=== PATIENT | male | born 1960 | race Caucasian/White ===

== ENCOUNTER 2018-11-25 15:27 | Inpatient (IN) ==
[2018-11-25] MEDS ORDERED: Heparin - SQ 10,000 UNITS/ML Vial SQ SCH (20:00)
[2018-11-25] MEDS: Morphine Inj 4 MG/ML Vial IV.PUSH PRN (22:35)
[2018-11-25] MEDS ORDERED: Heparin Drip 25,000 UNIT/250 ML BAG IV.CONT PRN (22:59)
--- NOTE | 2018-11-25 23:01 | P.HPIM ---
History of Present Illness Primary Care Physician: Royer De La Torre MD Mr. Leon is a pleasant 58-year-old male with a history of coronary artery disease status post stent placement x7 with last stent placed 8 years ago and first stent placed 14 years ago, hypertension, hyperlipidemia, PTSD, and tobacco abuse who presented to the emergency room in [place] complaining of chest pain. Troponin I measurement jumped from 0.03-0.54 and the patient was started on a heparin drip and start transferred to [facility] for further evaluation. The patient is seen in his hospital room. He reports his symptoms started this morning while he was cleaning house and doing laundry. His chest pain is described as a dull ache located substernally that is worse when he lays down and not accompanied by nausea or vomiting or palpitations. He does report an episode of diaphoresis and shortness of breath while he was cooking dinner ( chili) but it was transient and lasted only a few minutes. His symptoms did not resolve with rest and he continues to report pain at 5 out of 10 that is worse because he is lying down. He looks comfortable at the time of my visit. He states that his symptoms are nothing like the symptoms he had prior to any of his stent placement. He denies any recent fevers, chills, cough, nausea, vomiting, or diarrhea. He does not follow with a training development manager as an outpatient. Review of Systems Review of Systems: all other systems reviewed are negative [facility] Medical History Medical History CAD (coronary artery disease) (Acute) PTSD (post-traumatic stress disorder) (Acute) Tobacco abuse (Acute) Anxiety (Acute) Hyperlipemia (Acute) Hypertension (Acute) Surgical History Surgical History History of ankle fracture (Acute) History of femur fracture (Acute) History of wrist fracture (Acute) H/O laminectomy (Acute) Hx of heart artery stent (Acute) Social History Social History Substance History: Active Abuse Second Hand Smoke Exposure: Yes Smoking Status: Current every day smoker Tobacco Type: Cigarettes Packs Per Day: 0.5 Cigarettes Per Day: 10.0 Years Smoked: 45 Pack-Years: 22.50 How Often Do You Have a Drink Containing Alcohol: 2 to 3 times a week Substance Abuse Detail Marijuana: Substance Use Status: Active Route Used Substance Abuse: Inhalation Substance Frequency: 1-2 per week Reason for Use: Sleep Medications and Allergies Allergies Allergy/AdvReac Type Severity Reaction Status Date / Time No Known Allergies Allergy Verified 11/25/18 15:50 Home Medications Medication Instructions Recorded Confirmed Type alprazolam [Xanax] 1 mg PO PRN PRN 11/25/18 11/26/18 History cyclobenzaprine 10 mg PO PRN PRN 11/25/18 11/26/18 History lisinopril 10 mg PO HS 11/25/18 11/26/18 History Active Medications: Active Medications Aspirin (Aspirin) 325 mg PO DAILY [facility] Heparin Sodium (Porcine) (Heparin Inj) 2,500 units IV.PUSH UNSCH PRN PRN Reason: aPTT 25-39 Heparin Sodium (Porcine) (Heparin Inj) 5,000 units IV.PUSH UNSCH PRN PRN Reason: aPTT < 25 Heparin Sodium/Dextrose (Heparin/D5w 25,000 U/250 Ml) 25,000 unit in 250 mls @ 0 mls/hr IV.CONT TITRATE PRN; Protocol PRN Reason: Per Protocol Morphine Sulfate (Morphine Inj) 2 mg IV.PUSH Q4H PRN PRN Reason: Pain 3 to 10 Last Admin: 11/25/18 22:35 Dose: 2 mg Nitroglycerin (Nitrostat Sl) 0.4 mg SL Q5M PRN PRN Reason: CHEST PAIN Ondansetron HCl (Zofran Inj) 4 mg IV.PUSH Q6H PRN PRN Reason: NAUSEA Sodium Chloride (Ns Flush) 2 ml IV.FLUSH BID [facility] Last Admin: 11/25/18 22:38 Dose: 2 ml Sodium Chloride (Ns Flush) 2 ml IV.FLUSH PRN PRN PRN Reason: FLUSH AFTER USING IV ACCESS Physical Exam Vital signs: Vital Signs 11/25/18 20:00 Pulse Oximetry 98 Intake & Output 11/25/18 11/25/18 11/26/18 06:59 18:59 06:59 Weight 80.3 kg Other: Weight On Admission 80.3 kg Narrative: GENERAL: This is a somewhat disheveled appearing but pleasant male patient, in no apparent distress. SKIN: No rashes, ecchymoses or lesions. Cool and dry. HEAD: Atraumatic. Normocephalic. EYES: No scleral icterus. No injection or drainage. ENT: Nose without bleeding, purulent drainage. NECK: Trachea midline. No JVD. CARDIOVASCULAR: Regular rate and rhythm without murmurs, gallops, or rubs. RESPIRATORY: Breath sounds diminished throughout, equal bilaterally. No wheezes , rales, or rhonchi. GASTROINTESTINAL: Abdomen soft, non-tender, nondistended. No guarding. MUSCULOSKELETAL: Extremities without clubbing, cyanosis, or edema. No calf tenderness. NEUROLOGICAL: Awake and alert. Motor and sensory grossly within normal limits. Normal speech. . Results Labs CBC & Chem 7: 11/26/18 03:53 Caprini VTE Risk Assessment Caprini VTE Risk Assessment: Moderate/High Risk (score >= 2) Caprini Risk Assessment Model: Point Value = 1 Point Value = 2 Point Value = 3 Point Value = 5 Age 41-60 Minor surgery BMI > 25 kg/m2 Swollen legs Varicose veins or History of unexplained or recurrent spontaneous Oral contraceptives or hormone replacement Sepsis (< 1 month) Serious lung disease, including pneumonia (< 1 month) Abnormal pulmonary function Acute myocardial infarction Congestive heart failure (< 1 month) History of inflammatory bowel disease Medical patient at bed rest Age 61-74 Arthroscopic surgery Major open surgery (> 45 min) Laparoscopic surgery (> 45 min) Malignancy Confined to bed (> 72 hours) Immobilizing plaster cast Central venous access Age >= 75 History of VTE Family history of VTE Factor V Leiden Prothrombin [id number] Lupus anticoagulant Anticardiolipin antibodies Elevated serum homocysteine Heparin-induced thrombocytopenia Other congenital or acquired thrombophilia Stroke (< 1 month) Elective arthroplasty Hip, pelvis, or leg fracture Acute spinal cord injury (< 1 month) Prophylaxis Regimen: Total Risk Factor Score Risk Level Prophylaxis Regimen 0-1 Low Early ambulation 2 Moderate Order ONE of the following: *Sequential Compression Device (SCD) *Heparin 5000 units SQ BID 3-4 Higher Order ONE of the following medications: *Heparin 5000 units SQ TID *Enoxaparin/Lovenox 40 mg SQ daily (WT < 150 kg, CrCl > 30 mL/min) *Enoxaparin/Lovenox 30 mg SQ daily (WT < 150 kg, CrCl > 10-29 mL/min) *Enoxaparin/Lovenox 30 mg SQ BID (WT < 150 kg, CrCl > 30 mL/min) AND/OR *Sequential Compression Device (SCD) 5 or more Highest Order ONE of the following medications: *Heparin 5000 units SQ TID (Preferred with Epidurals) *Enoxaparin/Lovenox 40 mg SQ daily (WT < 150 kg, CrCl > 30 mL/min) *Enoxaparin/Lovenox 30 mg SQ daily (WT < 150 kg, CrCl > 10-29 mL/min) *Enoxaparin/Lovenox 30 mg SQ BID (WT < 150 kg, CrCl > 30 mL/min) AND *Sequential Compression Device (SCD) Assessment and Plan Plan Mr. Leon is a pleasant 58-year-old male with a history of coronary artery disease status post stent placement x7 with last stent placed 8 years ago and first stent placed 14 years ago, hypertension, hyperlipidemia, PTSD, and tobacco abuse who presented to the emergency room in [place] complaining of chest pain. Troponin I measurement jumped from 0.03-0.54 and the patient was started on a heparin drip and start transferred to [facility] for further evaluation. NSTEMI -Troponin I 0.03, then 0.54 - follow results of next level, EKG personally reviewed - SR with no ischemic changes -Heparin drip for anticoagulation -Morphine 2 mg IV q3h PRN pain -Nitropaste 1" q6h -Metoprolol 12.5 mg p.o. daily -Aspirin 325 daily po -continuous cardiac telemetry -N.p.o. except medications -consult to cardiology - patient does not follow with outpatient training development manager despite extensive history of coronary artery disease requiring stent placement - I have advised him of his need to establish with a training development manager Hypertension -Continue home lisinopril -Monitor trends in blood pressure readings and adjust treatment as indicated GERD -Suspect reflux is playing a role in patient's symptomatology -Protonix 40 mg IV ordered followed by 40 mg p.o. daily Anxiety/PTSD -Xanax dosing verified on [employer] website, Xanax 1 mg number 90/30-day supply last filled 11/09/2018 -we will continue Chronic back pain -Continue Flexeril DVT prophylaxis -on heparin drip at this time Discussed Condition With: Patient, Bedside RN, and Dr. Lawrence I have personally seen and evaluated the patient and performed a history and physical. For further details please see MARBELLA Rodriguez his documentation. I agree with the assessment and plan and have reviewed the plan of care. H&P: Quality VTE Deep Vein Thrombosis/Pulmonary Embolism Present on Admission: No
[2018-11-25] MEDS ORDERED: Pantoprazole Inj 40 MG Vial IV.PUSH ONE (23:36)
[2018-11-26 02:26] LABS: Troponin I 1.42 ng/mL (0.02-0.05)
[2018-11-26 04:22] LABS: Hematocrit 45.6 % (39.0-51.0); Hemoglobin 15.9 gm/dL (13.0-17.0); Mean Corpuscular HGB Conc 34.8 % (32.0-36.0); Mean Corpuscular Hemoglobin 32.8 pg (27.0-34.0); Mean Corpuscular Volume 94.3 fL (80.0-100.0); Mean Platelet Volume 7.6 fL (7.0-11.0); Platelet Count 236 th/mm3 (150-450); Red Blood Count 4.84 mil/mm3 (4.50-5.90); Red Cell Distribution Width 13.6 % (11.6-17.2); White Blood Count 7.9 th/mm3 (4.0-11.0)
[2018-11-26] MEDS ORDERED: Heparin 10,000 UNITS/10 ML Vial (for IV use) IV.PUSH PRN ×3 (04:59→21:43)
[2018-11-26] MEDS ORDERED: Metoprolol Tartrate 25 MG Tablet PO SCH (05:00)
[2018-11-26] MEDS: Morphine Inj 4 MG/ML Vial IV.PUSH PRN ×4 (05:26→21:26)
[2018-11-26] MEDS ORDERED: Sod Chloride 0.9% Inj 1,000 ML IV.CONT SCH (08:00)
[2018-11-26] MEDS ORDERED: diazePAM 5 MG Tablet PO SCH (08:00)
--- NOTE | 2018-11-26 08:15 | P.PNIM ---
Subjective Interval history: f/u; NSTEMI in no acute distress. has mild substernal chest pain. no sob. Physical Exam Vital signs: Vital Signs 11/25/18 20:00 11/25/18 22:00 11/25/18 22:30 Temperature 97.5 F L Pulse Rate 70 70 Respiratory Rate 20 Blood Pressure 141/83 H Pulse Oximetry 98 98 11/25/18 23:00 11/25/18 23:29 11/25/18 23:56 Temperature Pulse Rate 70 64 Respiratory Rate 20 Blood Pressure Pulse Oximetry 11/26/18 01:00 11/26/18 02:00 11/26/18 02:54 Temperature Pulse Rate 68 64 68 Respiratory Rate Blood Pressure Pulse Oximetry 11/26/18 03:40 11/26/18 04:00 11/26/18 05:00 Temperature 97.6 F Pulse Rate 69 66 64 Respiratory Rate 18 Blood Pressure 104/63 Pulse Oximetry 96 11/26/18 06:00 11/26/18 07:00 Temperature Pulse Rate 69 68 Respiratory Rate Blood Pressure Pulse Oximetry Intake & Output 11/25/18 11/26/18 11/26/18 18:59 06:59 18:59 Intake Total 840 / 840 Balance 840 / 840 Weight 80.4 kg Intake: Oral 840 / 840 Other: # Voids 3 Date of Last Bowel Movement 11/25/18 Weight On Admission 80.3 kg Constitutional no acute distress Routine Respiratory Exam Present CTA bilaterally Routine Cardiovascular Exam Present RRR Routine Abdominal Exam Present soft Routine Extremities Exam Comments: no pedal edema. Routine Neurological Exam Present alert and oriented X3 Results Labs CBC & Chem 7: 11/26/18 03:53 Assessment and Plan Plan A/P NSTEMI -Heparin drip for anticoagulation -Morphine 2 mg IV q3h PRN pain -Nitropaste 1" q6h -Metoprolol 12.5 mg p.o. daily -Aspirin 325 daily po -continuous cardiac telemetry -N.p.o. except medications -consulted to cardiology - patient does not follow with outpatient textiles printer despite extensive history of coronary artery disease requiring stent placement - I have advised him of his need to establish with a textiles printer Hypertension -Continue home lisinopril -Monitor trends in blood pressure readings and adjust treatment as indicated GERD -Protonix 40 mg IV ordered followed by 40 mg p.o. daily Anxiety/PTSD -Xanax dosing verified on [employer] website, Xanax 1 mg number 90/30-day supply last filled 11/09/2018 -we will continue Chronic back pain -Continue Flexeril DVT prophylaxis -on heparin drip at this time Discussed Condition With: the patient. Discharge Planning: awaiting cardiac work-up. Progress Note: Quality VTE Deep Vein Thrombosis/Pulmonary Embolism Present on Admission: No
--- NOTE | 2018-11-26 08:23 | MB ---
cc: Jaspal Patrick MD DATE: 11/26/2018 REASON FOR CONSULTATION: Evaluation of chest pain and elevated troponin. HISTORY OF PRESENT ILLNESS: Freddy Leon is a 58-year-old man with known coronary artery disease. He had apparently 7 stents placed at [place] in [place], but this was quite a few years ago, maybe 10 years ago. He has not been catheterized since then. He was seen by one of my colleagues over in [facility] in 2011 and had a negative nuclear test. The patient is uncontrolled risk factors. He does not take statins for his severe chronic hyperlipidemia. He also continues to smoke and has smoked since age 7, currently at a 1/2 pack per day. He has had some intermittent chest pain for the past couple of years. Monday, things seem to change. The last 4 days, he has been having intermittent chest pain. He describes it like a burning feeling in his stomach going up to his throat area. It became particularly severe since Monday and was severe yesterday. His troponin has gone up. He is currently n.p.o. for cardiac catheterization. He states he has slight discomfort while I was doing his history and physical. PAST MEDICAL HISTORY: Includes coronary artery disease, hypertension, hyperlipidemia, posttraumatic stress disorder from deaths of colleagues when he was in the [employer], chronic tobacco abuse, chronic back pain, mentioned in the past kidney trouble. PAST SURGICAL HISTORY: Includes previous stents to the LAD and circumflex artery from history; laminectomy; cholecystectomy; previous fracture of an ankle, femur, and wrist. ALLERGIES: INCLUDE MORPHINE GIVES HIM A HEADACHE, NOT A TRUE ALLERGY. HE ALSO HAS LISTED CODEINE, DEMEROL, SULAR, AND LOVENOX. REVIEW OF SYSTEMS: Noncontributory. SOCIAL HISTORY: He is . 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 Smokes 1/2 pack per day. Denies alcohol. FAMILY HISTORY: Positive for premature coronary artery disease and hyperlipidemia. PHYSICAL EXAMINATION: GENERAL: Shows a robust, anxious, well-developed, well-nourished man in no acute distress. He was mildly hypertensive on admission, but normotensive since then. HEENT: Unremarkable. NECK: Shows no bruits or JVD. LUNGS: Clear to auscultation. CARDIAC: S1, S2. Regular rate and rhythm. No murmurs or gallops. ABDOMEN: Soft, nontender. No masses or organomegaly. EXTREMITIES: Show no clubbing, cyanosis, or edema. His pulses are 2+. DIAGNOSTIC DATA: Creatinine is 1.0. Hematocrit 47.7. Troponin has risen from 0.03-0.54, now 1.42. EKG shows sinus rhythm. There are small Q-waves inferiorly, suggestive of an old inferior infarct. The patient does not know if he has had a prior infarct. There are no acute ST-T wave changes. I have ordered a hemoglobin A1C and a lipid profile, those are pending. Chest x-ray is unremarkable. IMPRESSION: A 52-year-old man, smoker, hyperlipidemia uncontrolled, now comes in with an acute non-ST elevation myocardial infarction. He has had known coronary disease going back 10 years. PLAN: To perform a diagnostic cardiac catheterization this morning the first opening that we can get him in. Continue heparin. He will likely need some form of revascularization. Informed consent is obtained for a cath and possible intervention. MD MINDA Fajardo/ricky , 08:02 AM , 08:10 AM
[2018-11-26] MEDS: Aspirin 325 MG Tablet PO SCH (10:17)
[2018-11-26] MEDS: Metoprolol Tartrate 25 MG Tablet PO SCH ×2 (10:17→20:12)
[2018-11-26 10:21] LABS: Chol/HDL Ratio 6.13 Ratio; HDL Cholesterol 41.1 mg/dL (40.0-60.0)
[2018-11-26] MEDS ORDERED: Heparin/NS PF Inj 1,000 ML ONE (11:26)
[2018-11-26] MEDS ORDERED: fentaNYL Citrate Inj 100 MCG/2 ML Ampul ONE (11:26)
[2018-11-26] MEDS ORDERED: Heparin 10,000 UNITS/10 ML Vial (for IV use) ONE (11:27)
--- NOTE | 2018-11-26 12:28 | CATHPROC ---
[employer] HIS Report Study Information Study Number Admission Scheduled Start Study Start [id number] Nov 26 2018 1:18AM 11/26/2018 Nov 26 2018 11:01AM Study Type [place] [facility] Left/Possible PCI Cardiac Catheterization Admit Source Facility Department Emergency department [facility] - T[employer] Physician and Clinical Staff Initial Jaspal Jennings Ediphone Operator Mariano Andrews,SUNNY Ediphone Operator Deirdre Lucero,SUNNY Recorder Radha Rick RCIS TECH2 Scrub Hernan Gonzales RCIS(BS) Procedures Performed Procedure Location (Site) Vessel Name Angiogram LV LV Ventricle Coronary Angiograms LCA Left Coronary Coronary Angiograms RCA Right Coronary L Heart Cath LV Gram-hand inj. LV LV Ventricle Equipment Time Marine Equipment Preservation Inspector Description Size Mfg Part Number Used/Scraped TRANSDUCER, TRUWAVE [id number] 11:03 OZUNA AGUILAR * Used W/STOCKCOCK *[id number] *[id number] 11:03 [employer]IN[employer] SYRINGE, ANGIOMAT 150ML 150ML *[id number] Used 2SUB [id number] 11:03 [employer] BLANKET,WARM AIR CCL * Used *[id number] 11:03 [employer] PACK, CCL CUSTOM * Used *[id number] 11:03 [employer] SUPPORT, ARTERIAL ADULT 00196 *[id number] Used [id number] 11:03 [employer] PACER PEN, SKIN DUAL W/ RULER * Used *[id number] 11:55 [employer] JL 3.5 DXTERITY CATHETER FR 5 Used *[id number] 11:56 [employer] JL 3.5 DXTERITY CATHETER FR 5 Used *[id number] BAND, RADIAL COMPRESSION TR [id number] 12:13 [employer] 24CM Used SHORT 24 *[id number] 11:03 [employer] WIRE, EXCHANGE 260CM 3MMJ 260CM Used *[id number] 11:03 NAMIC MANIFOLD, 4 PORT * Used *[id number] 12:14 NAMIC TUBING, HIGH PRESSURE 48" 48" Used *[id number] 11:03 [employer] OMNIPAQUE, 350 MG, 100ML 100ML [id number] Used 12:11 [employer] OMNIPAQUE, 350 MG, 50ML 50ML [id number] Used 11:03 [employer] JELCO NEEDLE 4056 *[id number] Used CATHETER, FR5 OPTITORQUE [id number] 11:46 TERlifeIO FR 5 Used RADIAL TIG 4.0 *[id number] SHEATH, FR6 TRANSRADIAL [id number] 11:03 TERlifeIO FR 6 Used SLENDER 10CM *[id number] History: Current Medications Medication Dosage/Unit Route Frequency Last Date/Time Taken LISINOPRIL Xanax History: Allergies Allergy Reaction No Known Allergies History: Risk Factors Family History of Hypertension Dyslipidemia Previous TN Previous Heart Failure Premature CAD Yes Yes Yes No No Prior Valve Prior PCI Prior PCIDate Prior CABG Surgery No Yes 10/16/2008 No Cerebrovascular Peripheral Artery Chronic Lung On Dialysis Diabetes Disease Disease Disease No No No No No History: Symptoms/Diagnosis Selection Items Chest pain SOB History: CV Disease Selection Items Known CAD History: Stress Tests Stress or Imaging Studies Performed No History: Other Disease Selection Items Renal Failure/Insufficiency History: Other Current Smoker Method Packs a Day Years Used Pack Years Yes Cigarettes 1 45 45 Labs Hgb (g/dl) Hct (%) WBC (l/cumm) Platelets (thousands) 11.60-17.00 35.00-51.00 4.00-11.00 150.00-450.00 15.9 45.6 7.9 236 Glucose (mg/dl) BUN (mg/dl) Creatinine (mg/dl) BUN:Creatinine (1:x) 74.00-106.00 7.00-18.00 0.50-1.30 10.00-20.00 112 13 1.0 13 Na (meq/l) K (meq/l) Cl (meq/l) CO2 (mmol/L) 136.00-145.00 3.50-5.10 98.00-107.00 21.00-32.00 138 4.4 104 26 PTT (sec) INR (PTT:PT) 24.30-30.10 0.90-1.10 38.5 1 Troponin I (ng/ml) CPK (u/l) CPK-MB (ng/ML) 0.02-0.05 26.00-308.00 0.50-3.60 1.42 78 Not Drawn Cholesterol (mg/dl) HDL (mg/dl) LDL (mg/dl) HDL:LDL (1:x) Triglycerides (mg/dl) 120.00-200.00 40.00-60.00 0.00-99.00 1.00-6.00 42.00-150.00 252 41 177 4.3 171 Medication Medication Total Dose (Bolus/Oral) Medication Total Dosage/Unit 1% XYLOCAINE 5 mL FENTANYL 50 mcg RADIAL COCKTAIL 5 mL (Bolus) VERSED 2 mg Medications (Bolus/Oral) Medication Time Given Dosage/Unit Administered By Reason VERSED 11/26/2018 11:40:44 AM 1 mg Juliana, Mariano 1 mg VERSED given in lab by Mariano Andrews RN in Left Antecubital via Peripheral IV. Ordered by Jaspal Patrick. FENTANYL 11/26/2018 11:41:18 AM 50 mcg Juliana, Mariano 50 mcg FENTANYL given in lab by Mariano Andrews RN in Left Antecubital via Peripheral IV. Ordered by Jaspal Reeder. 1% XYLOCAINE 11/26/2018 11:42:03 AM 5 mL Jaspal Patrick 5 mL 1% XYLOCAINE given in lab by Jaspal Patrick in Right Radial via Subcutaneous. Ordered by Jaspal Patrick. VERSED 11/26/2018 11:42:34 AM 1 mg Juliana, Mariano 1 mg VERSED given in lab by Mariano Andrews RN in Left Antecubital via Peripheral IV. Ordered by Jaspal Patrick. Ntg 200mcg Verapamil 2.5mg Heparin RADIAL COCKTAIL 11/26/2018 11:46:31 AM 5 mL (Bolus) Jaspal Patrick 2500U 5 mL (Bolus) RADIAL COCKTAIL given in lab by Jaspal Patrick in Right Radial via Radial. Using [Solutio n Name]. Ordered by Jaspal Patrick. Reason: Ntg 200mcg Verapamil 2.5mg Heparin 2500U. Medication (Drip) Medication Time Given Dosage/Unit Concentration/Unit Diluent (ml) Solution IV Solutions 11/26/2018 11:14:03 AM 0 mL (IV) 500 NaCl .9 IV Solutions given in lab by Deirdre Lucero RN in Left Antecubital via Peripheral IV. Pump/Drip Jose Guadalupe w = 20 ml/hr using NaCl .9. Ordered by Jaspal Patrick. Initial Case Assessment Cardiovascular HR Rhythm NIBP Chest Pain 71 sr 133/96 0 Circulatory - Right Pulses Dorsalis Pedis Femoral Radial 2 2 2 Scale (0,1,2,3,4,d) Scale (0,1,2,3,4,d) Neurological State Oriented to time-place- Alert Moves all extremities person Respiration - General Respiration Rate SpO2 (%) (B/min) 20 97 Chronological Log Time Study Chronological Log 11:13:51 Patient arrived via Bed. 11:13:52 Patient Name, D.O.B, / Armband Verified By R.N. 11:13:53 Consent signed by the physician and the patient and verified by the [employer] staff. 11:13:57 Pre-op and post- op instructions given; patient acknowledges understanding of instructions. 11:13:57 Presedation assessment performed by [employer] RN. 11:13:58 Positive Allens test performed on the right radial and ulnar artery. 11:14:00 Patient has been NPO for More than 6Hrs. 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 11:14:02 Ayo Prominences Protected 11:14:02 A # 20 IV was noted in the Antecubital (left). Grade = 0 IV Solutions given in lab by Deirdre Lucero, RN in Left Antecubital via Peripheral IV. Pump/Dr ip Flow = 20 ml/hr using 11:14:03 NaCl .9. Ordered by Jaspal Patrick. 11:14:05 History and physical on the chart or being dictated. Vitals capture started with the following parameters, Patient=Adult, Interval=5 min, Initial Pr kdgkuj=733 mmHg, 11:20:12 Deflation Rate=5 mmHg, Cuff placed on Right Limb 11:20:49 HR=71 bpm, LROM=297/96 mmhg, SpO2=98.0 %, Resp=14 B/min Assessment: Initial Case, HR=71 BPM, Rhythm=sr, LXCN=170/96 mmhg, Chest Pain=0 Right Pulses: Gabriele Ped=2, Femoral=2, Radial=2 11:21:19 Neurological: State=Alert, Ox3, ARCE Respiration: Resp=20 B/min, SpO2=97 % 11:24:01 Right Radial and groin(s) prepped with 2% chlorhexidine, and draped after a 3 min. waiting time. 11:26:29 HR=59 bpm, XYCF=274/87 mmhg, SpO2=95.0 %, Resp=20 B/min 11:27:54 MD paged 11:30:30 Reference ECG taken 11:30:45 HR=61 bpm, OBGW=566/82 mmhg, SpO2=94.0 %, Resp=11 B/min 11:32:26 Pressure channel 1 zeroed. 11:35:47 HR=59 bpm, WEDL=558/90 mmhg, SpO2=94.0 %, Resp=14 B/min 11:36:18 MD arrived. 11:40:44 1 mg VERSED given in lab by Mariano Andrews RN in Left Antecubital via Peripheral IV. Ordered by Jaspal Patrick. 11:41:18 50 mcg FENTANYL given in lab by Mariano Andrews RN in Left Antecubital via Peripheral IV. Ord ered by Jaspal Patrick. 11:41:29 ZZ=367 bpm, ZQTS=483/85 mmhg, Resp=15 B/min Time Out. Correct patient, correct procedure, correct physician, labs, allergies, and equipment verified with dairy and food laboratory assistant 11:41:56 team present. Fire risk assesment completed (see hard stop sheet for coding). Time Out Conc urred by and individual staff in procedure. 11:42:02 Case Start 11:42:03 5 mL 1% XYLOCAINE given in lab by Jaspal Patrick in Right Radial via Subcutaneous. Ordered b y Jaspal Patrick. 11:42:34 1 mg VERSED given in lab by Mariano Andrews RN in Left Antecubital via Peripheral IV. Ordered by Jaspal Patrick. 11:45:07 Access site was Right Radial Artery . A SHEATH, FR6 TRANSRADIAL SLENDER 10CM FR 6 was advanced into the Radial (right) using the Perc utaneous 11:45:15 technique. A CATHETER, FR5 OPTITORQUE RADIAL TIG 4.0 FR 5 was advanced over a wire. OMNIPAQUE, 350 MG, 100 ML 100ML 11:45:38 was used for injections. 11:45:49 HR=57 bpm, WOXU=584/77 mmhg, SpO2=92.0 %, Resp=12 B/min 5 mL (Bolus) RADIAL COCKTAIL given in lab by Jaspal Patrick in Right Radial via Radial. Using [S olution Name]. 11:46:31 Ordered by Jaspal Patrick. Reason: Ntg 200mcg Verapamil 2.5mg Heparin 2500U. A CATHETER, FR5 OPTITORQUE RADIAL TIG 4.0 FR 5 was advanced over a wire. OMNIPAQUE, 350 MG, 100 ML 100ML 11:46:49 was used for injections. Recorded Pressure: Ao, HR=61, Condition=Condition 1 11:49:06 (Aorta) Ao 105/70/86 11:50:48 HR=63 bpm, XKXS=270/71 mmhg, SpO2=90.0 %, Resp=14 B/min 11:50:49 The RCA was injected and visualized at various angles. OMNIPAQUE, 350 MG, 100ML 100ML used . Recorded Pressure: LV, HR=62, Condition=Condition 1 11:52:48 (Left Ventricle) LV 106/1/15 11:53:17 The LV was manually injected with 10 cc's and visualized. OMNIPAQUE, 350 MG, 100ML 100ML us ed. Recorded Pressure: LV, Ao, HR=61, Condition=Condition 1 11:53:27 (Left Ventricle) LV 102/7/13, (Aorta) Ao 94/58/74 After removing the current catheter a JL 3.5 DXTERITY CATHETER FR 5 was advanced over a WIRE, E XCHANGE 260CM 11:54:04 3MMJ 260CM. 11:55:49 HR=60 bpm, BQUU=820/67 mmhg, SpO2=91 %, Resp=14 B/min 11:58:37 The LCA was injected and visualized at various angles. OMNIPAQUE, 350 MG, 100ML 100ML used . 12:00:46 HR=58 bpm, RQBB=751/70 mmhg, SpO2=91.0 %, Resp=13 B/min 12:05:49 HR=57 bpm, MYCR=915/69 mmhg, SpO2=91 %, Resp=14 B/min After removing the current catheter a PIGTAIL ANG. INFINITI CATHETER FR 5 was advanced over a W NASH, EXCHANGE 12:07:13 260CM 3MMJ 260CM. Recorded Pressure: LV, HR=57, Condition=Condition 1 12:09:29 (Left Ventricle) LV 103/6/13 12:10:31 The LV was injected at 10 cc/sec for a total of 30. OMNIPAQUE, 350 MG, 50ML 50ML used. 12:10:48 HR=59 bpm, OPRI=512/71 mmhg, SpO2=92.0 %, Resp=12 B/min 12:11:44 Catheter was removed 12:11:48 Case End (Physician broke scrub) Radial Compression Device Used. 12 mLs of air placed in BAND, RADIAL COMPRESSION TR SHORT 24 24 CM. Affected 12:15:21 hand 95 % O2 saturation. 12:15:35 No case complications noted. 12:15:41 Cine recording checked. 12:15:47 HR=55 bpm, JLTN=691/73 mmhg, SpO2=91.0 %, Resp=16 B/min 12:17:26 Bedside Report will be given. 12:17:27 A Left Heart Cath was performed. 12:19:28 Patient moved to [facility] [place] End Study - Contrast Media Used In Study Contrast Total Opened (mL) Total Used (mL) Total Wasted (mL) Omnipaque 350 150 125 25 End Study - Maximum Contrast Load Max Contrast Load (mL) 402.3 End Study - Radiation Exposure Fluoro Time Fluoro Dose (mGy) Cine Dose (uGym2) (minutes) 8.1 7082 [id number] End Study - Patient Disposition Complications Transferred To Interventional Outcome No Telemetry Bed No attempt made
[2018-11-26] MEDS ORDERED: Iohexol 350 MG/ML 100 ML Vial (for Cath Lab) IVCONTRAST ONE (13:00)
[2018-11-26] MEDS ORDERED: Iohexol 350 MG/ML 50 ML Vial (for Cath Lab) IVCONTRAST ONE (13:00)
--- NOTE | 2018-11-26 13:23 | MA ---
cc: Jaspal Patrick MD DATE: 11/26/2018 PROCEDURE PERFORMED: Right radial arterial approach left heart catheterization, left ventriculography, coronary angiography. DESCRIPTION OF PROCEDURE: The patient was brought to the cardiac catheterization lab in a fasting state. The right wrist was prepped and draped in sterile fashion. He received IV Versed and fentanyl for sedation. Using 1% lidocaine for local anesthesia right radial artery was easily accessed and a Terumo slender sheath placed. Standard cocktail was administered. Right coronary angiography was completed using a Buckhannon catheter. I also did an LV gram on pullback. The left coronary, I imaged with a left 3.5 Camacho. I used an angled pigtail catheter for better LV gram and then the catheters were removed over a wire and sheath was removed with a Terumo band placed. There were no complications. ESTIMATED BLOOD LOSS: 10 mL. CONTRAST LOAD: 125 mL COMPLICATIONS: None. FINDINGS: HEMODYNAMICS: Left ventricular pressure was 103/6 with an end diastolic pressure of 13. Aortic pressure is 94/58 with a mean of 74. There was no gradient during pullback the left ventricle to the aorta. FLUOROSCOPY: Fluoroscopy shows multiple stents; looks like they are in the circumflex, LAD and diagonal. LEFT VENTRICULOGRAPHY: Left ventriculography shows a symmetrically matt left ventricle estimated ejection fraction of 60%. There is no mitral regurgitation seen. CORONARY ANGIOGRAPHY: Left main coronary artery has a tapering ostial 30% stenosis. The LAD has a focal 90% stenosis before the major septal supervisor compressed yeast branches. There is also 80% ostial diagonal branch disease. The LAD has been extensively stented. in the mid portion of the LAD stenting, there is an additional 80%-90% disease. Distal LAD is diffusely irregular and then there was an additional 90% stenosis right at the apex before the LAD pitchforks, supplies some of the inferoapical wall. The circumflex artery has an area of proximal ectasia. There is a 70% eccentric proximal stenosis. There is in-stent 40%-50% stenosis in the proximal portion of the major obtuse marginal branch. Major obtuse marginal branch is an excellent target vessel. The diagonal branch is also large enough to be grafted. The right coronary artery is dominant. This vessel demonstrates proximal ectasia; almost aneurysmal formation that is irregular. Just beyond that is a 30%-40% stenosis. The remainder of the right coronary artery has irregularities only until the posterolateral branches are given off. The posterolateral branches are small and the first posterolateral branch has a 90% stenosis. This area is too small to be grafted. IMPRESSION: 1. Normal hemodynamics. 2. Preserved left ventricular systolic function. 3. Severe and complex 2-vessel coronary artery disease. RECOMMENDATIONS: Coronary artery bypass grafting to the LAD, diagonal and circumflex marginal branch. MD MINDA Fajardo/jc , 12:26 PM , 12:37 PM
[2018-11-26] MEDS ORDERED: Insulin Regular (For Infusion) 100 UNIT in Sodium Chlor 0.9% Inj 99 ML IV.CONT PRN (14:12)
[2018-11-26] MEDS ORDERED: Dextrose 50% in Water 50 ML Vial IV.PUSH PRN (14:12)
[2018-11-26] MEDS ORDERED: Sodium Chlor 0.9% Inj 77.5 ML, Papaverine Inj 60 MG, Nitroglycerin Inj 100 MCG, dilTIAZ... IRRIGATION SCH ×3 (14:15)
[2018-11-26] MEDS ORDERED: Sodium Chloride 0.9% Irr Bot 500 ML, ceFAZolin Inj 500 MG IRRIGATION SCH ×2 (14:15)
[2018-11-26] MEDS ORDERED: Chlorhexidine 4% Topical 120 APPLIC/120 ML Bottle TOPICAL SCH (14:15)
--- NOTE | 2018-11-26 14:25 | P.PNCV ---
- Note Subjective/Hospital Course: pt seen and evaluated, full consult to follow sts data discussed with pt Procedure: Isolated CAB CALCULATE Risk of Mortality: 0.708% Renal Failure: 0.593% Permanent Stroke: 0.765% Prolonged Ventilation: 3.822% DSW Infection: 0.152% Reoperation: 1.395% Morbidity or Mortality: 5.986% Short Length of Stay: 68.832% Long Length of Stay: 1.960% Objective: Vital Signs - 24 hr 11/25/18 20:00 11/25/18 22:00 11/25/18 22:30 Temperature 97.5 F L Pulse Rate 70 70 Respiratory Rate 20 Blood Pressure 141/83 H Pulse Oximetry 98 98 11/25/18 23:00 11/25/18 23:29 11/25/18 23:56 Temperature Pulse Rate 70 64 Respiratory Rate 20 Blood Pressure Pulse Oximetry 11/26/18 01:00 11/26/18 02:00 11/26/18 02:54 Temperature Pulse Rate 68 64 68 Respiratory Rate Blood Pressure Pulse Oximetry 11/26/18 03:40 11/26/18 04:00 11/26/18 05:00 Temperature 97.6 F Pulse Rate 69 66 64 Respiratory Rate 18 Blood Pressure 104/63 Pulse Oximetry 96 11/26/18 06:00 11/26/18 07:00 11/26/18 08:00 Temperature 97.7 F Pulse Rate 69 68 62 Respiratory Rate 18 Blood Pressure 97/66 L Pulse Oximetry 96 11/26/18 09:00 11/26/18 10:00 11/26/18 11:00 Temperature Pulse Rate 66 58 L 58 L Respiratory Rate Blood Pressure Pulse Oximetry 11/26/18 12:00 11/26/18 13:00 11/26/18 14:00 Temperature 97.8 F Pulse Rate 61 56 L 60 Respiratory Rate 18 Blood Pressure 147/80 H Pulse Oximetry 95 Labs: Laboratory Results - last 12 hr 11/26/18 11/26/18 11/26/18 01:37 01:37 03:53 WBC RBC Hgb Hct MCV MCH MCHC RDW Plt Count MPV APTT 40.0 H Total Creatine Kinase 78 Troponin I 1.42 H* Triglycerides 171 H Cholesterol 252 H LDL Cholesterol, Calc 177 H HDL Cholesterol 41.1 Cholesterol/HDL Ratio 6.13 11/26/18 11/26/18 03:53 07:37 WBC 7.9 RBC 4.84 Hgb 15.9 Hct 45.6 MCV 94.3 MCH 32.8 MCHC 34.8 RDW 13.6 Plt Count 236 MPV 7.6 APTT 38.5 H Total Creatine Kinase Troponin I Triglycerides Cholesterol LDL Cholesterol, Calc HDL Cholesterol Cholesterol/HDL Ratio Result Diagrams: 11/26/18 03:53
[2018-11-26] MEDS ORDERED: ceFAZolin 2 GM Premix Inj 2 GM/50 ML PIGGYBACK IV.SIG SCH (15:00)
--- NOTE | 2018-11-26 15:21 | ECG ---
Date Performed: 11/26/2018 Time Performed: 00:38:54 PTAGE: 58 years EKG: Sinus rhythm Possible inferior infarct - age undetermined Since the previous tracing, no significant change noted Abnormal ECG NO PREVIOUS TRACING DOCTOR: Todd Mansfield Interpretating Date/Time 11/26/2018 15:19:00
--- NOTE | 2018-11-26 17:28 | US ---
EXAM DATE: 11/26/2018 5:24 PM EST AGE/SEX: 58 years / Male INDICATIONS: Pre-Op cardiac. CLINICAL DATA: This is the patient's initial encounter. Patient reports that signs and symptoms have been present for 1 day and indicates a pain score of 0/10. MEDICAL/SURGICAL HISTORY: Hypertension. Coronary artery disease. Hyperlipidemia. PTSD. . Alfonso ectomy. Right ankle repair. Femur repair. Wrist repair. Cardiac cath with stent. COMPARISON: No prior exams available for comparison. TECHNIQUE: Venous ultrasound of both lower extremities was performed from the inguinal ligament to t he proximal calf. Real-time, color Doppler and spectral tracing, compression and augmentation techni ques were used. FINDINGS: Right Leg: Normal compression of the deep venous system from the inguinal region to the proximal kat f. No echogenic clot is seen. Normal response of the venous system to augmentation and respiration. Left Leg: Normal compression of the deep venous system from the inguinal region to the proximal calf . No echogenic clot is seen. Normal response of the venous system to augmentation and respiration. Other: None. CONCLUSION: 1. The study is negative for bilateral lower extremity deep venous thrombosis. Electronically signed by: Spencer Bartholomew MD Board Certified Radiologist 11/26/2018 5:26 PM EST
--- NOTE | 2018-11-26 17:32 | US ---
EXAM DATE: 11/26/2018 5:28 PM EST AGE/SEX: 58 years / Male INDICATIONS: Pre-Op Cardiac. CLINICAL DATA: This is the patient's initial encounter. Patient reports that signs and symptoms have been present for 1 day and indicates a pain score of 0/10. MEDICAL/SURGICAL HISTORY: Hypertension. Coronary artery disease. Hyperlipidemia. PTSD. . Alfonso ectomy. Right ankle repair. Femur repair. Wrist repair. Cardiac cath with stent. COMPARISON: [facility] [place]ENOUS DOPPLER LEG BI, 11/26/2018. . MEASUREMENTS: RIGHT THIGH: Proximal:__5 mm Mid:__ 2 mm Distal:__2 mm LEFT THIGH: Proximal:__5 mm Mid:__3 mm Distal:__2 mm RIGHT CALF: Proximal:__1 mm Mid:__Non-visualized Distal:__Non-visualized LEFT CALF: Proximal:__1 mm Mid:__Non-visualized Distal:__Non-visualized FINDINGS: The venous system of the lower extremities are patent by color Doppler imaging. Measurements of the leg veins (in mm) are listed above. CONCLUSION: 1. Venous mapping as above. Electronically signed by: Spencer Bartholomew MD Board Certified Radiologist 11/26/2018 5:30 PM EST
--- NOTE | 2018-11-26 17:40 | US ---
EXAM DATE: 11/26/2018 5:31 PM EST AGE/SEX: 58 years / Male INDICATIONS: Pre-Op Cardiac. CLINICAL DATA: This is the patient's initial encounter. Patient reports that signs and symptoms have been present for 1 day and indicates a pain score of 0/10. MEDICAL/SURGICAL HISTORY: Hypertension. Coronary artery disease. Hyperlipidemia. PTSD. . Alfonso ectomy. Right ankle repair. Femur repair. Wrist repair. Cardiac cath with stent. COMPARISON: No prior exams available for comparison. VELOCITY PARAMETERS: ICA/CCA Ratio: Right 1.1 , Left 1.6 ICA: Right 91 cm/sec, Left 115 cm/sec CCA: Right 82 cm/sec, Left 72 cm/sec ECA: Right 137 cm/sec, Left 94 cm/sec Vertebral: Right 51 cm/sec antegrade, Left 32 cm/sec antegrade FINDINGS: Right Carotid: Mild arteriosclerotic plaque is visualized.The waveforms are within normal limits. Left Carotid: No significant plaque is visualized. The waveforms are within normal limits. Other: None. CONCLUSION: Mild plaquing in the right carotid system with less than 50% diameter stenosis by velocit y criteria. Electronically signed by: Son Solis MD Board Certified Radiologist 11/26/2018 5:39 PM EST
[2018-11-26 17:51] LABS: Hemoglobin A1c 5.6 % (4.3-6.0)
[2018-11-26 18:46] LABS: Activated Partial Thrombo Time 37.6 sec (23.4-31.7)
[2018-11-26] MEDS: Heparin 10,000 UNITS/10 ML Vial (for IV use) IV.PUSH PRN (20:12)
[2018-11-26] MEDS ORDERED: Lisinopril 10 MG Tablet PO SCH (21:00)
[2018-11-27] MEDS: Heparin Drip 25,000 UNIT/250 ML BAG IV.CONT PRN ×2 (01:08→07:42)
[2018-11-27] MEDS: Sod Chloride 0.9% Inj 1,000 ML IV.CONT SCH ×5 (01:10→21:44)
[2018-11-27 04:53] LABS: Baso % (Auto) 0.3 % (0.0-2.0); Eos # (Auto) 0.2 th/mm3 (0.0-0.4); Eos % (Auto) 2.5 % (0.0-4.0); Hematocrit 43.5 % (39.0-51.0); Hemoglobin 15.1 gm/dL (13.0-17.0); Lymph # (Auto) 3.6 th/mm3 (1.0-4.8); Lymph % (Auto) 36.4 % (9.0-44.0); Mean Corpuscular HGB Conc 34.7 % (32.0-36.0); Mean Corpuscular Hemoglobin 32.1 pg (27.0-34.0); Mean Corpuscular Volume 92.6 fL (80.0-100.0); Mean Platelet Volume 8.1 fL (7.0-11.0); Mono # (Auto) 0.6 th/mm3 (0.0-0.9); Mono % (Auto) 6.1 % (0.0-8.0); Neut # (Auto) 5.5 th/mm3 (1.8-7.7); Neut % (Auto) 54.7 % (16.0-70.0); Platelet Count 235 th/mm3 (150-450); Red Cell Distribution Width 13.7 % (11.6-17.2)
[2018-11-27] MEDS: Morphine Inj 4 MG/ML Vial IV.PUSH PRN ×3 (05:09→21:41)
[2018-11-27 05:11] LABS: Calcium 8.7 mg/dL (8.5-10.1); Carbon Dioxide 29.1 meq/L (21.0-32.0); Potassium 3.7 meq/L (3.5-5.1)
--- NOTE | 2018-11-27 06:56 | P.PNIM ---
Subjective Interval history: f/u; NSTEMI in no acute distress. has slight chest pain and headache. no other complaints. Physical Exam Vital signs: Vital Signs 11/26/18 07:00 11/26/18 08:00 11/26/18 09:00 Temperature 97.7 F Pulse Rate 68 62 66 Respiratory Rate 18 Blood Pressure 97/66 L Pulse Oximetry 96 11/26/18 10:00 11/26/18 11:00 11/26/18 12:00 Temperature 97.8 F Pulse Rate 58 L 58 L 61 Respiratory Rate 18 Blood Pressure 147/80 H Pulse Oximetry 95 11/26/18 13:00 11/26/18 14:00 11/26/18 15:00 Temperature Pulse Rate 56 L 60 58 L Respiratory Rate Blood Pressure Pulse Oximetry 11/26/18 16:00 11/26/18 17:00 11/26/18 18:00 Temperature Pulse Rate 63 66 79 Respiratory Rate Blood Pressure Pulse Oximetry 11/26/18 19:00 11/26/18 19:54 11/26/18 20:00 Temperature Pulse Rate 68 64 Respiratory Rate 18 Blood Pressure Pulse Oximetry 11/26/18 21:00 11/26/18 22:00 11/26/18 23:00 Temperature Pulse Rate 68 62 65 Respiratory Rate Blood Pressure Pulse Oximetry 11/26/18 23:56 11/27/18 00:00 11/27/18 01:00 Temperature Pulse Rate 72 64 Respiratory Rate 18 Blood Pressure Pulse Oximetry 11/27/18 02:00 11/27/18 03:00 11/27/18 03:16 Temperature Pulse Rate 58 L 62 Respiratory Rate 18 Blood Pressure Pulse Oximetry 11/27/18 04:00 11/27/18 05:00 11/27/18 05:12 Temperature Pulse Rate 58 L 58 L Respiratory Rate 20 Blood Pressure Pulse Oximetry 11/27/18 06:00 Temperature Pulse Rate 55 L Respiratory Rate Blood Pressure Pulse Oximetry Intake & Output 11/26/18 11/26/18 11/27/18 06:59 18:59 06:59 Intake Total 840 / 840 482 / 482 Output Total 500 / 500 Balance 840 / 840 482 / 482 -500 / -500 Weight 80.4 kg 80 kg Intake: IV 2 / 2 Heparin/NS PF Inj 1,000 ML @ 0 2 / 2 mls/hr .ROUTE .STK-garbs ONE Rx#: [id number] Oral 840 / 840 480 / 480 Output: Urine 500 / 500 Other: # Voids 3 4 6 Date of Last Bowel Movement 11/25/18 11/25/18 11/25/18 Weight On Admission 80.3 kg Constitutional no acute distress Routine Respiratory Exam Present CTA bilaterally Routine Cardiovascular Exam Present RRR Routine Abdominal Exam Present soft Routine Extremities Exam Comments: no pedal edema. Routine Neurological Exam Present alert and oriented X3 Results Labs CBC & Chem 7: 11/27/18 03:32 11/27/18 03:32 Imaging Imaging: Impressions Carotid Doppler Study 11/26/18 14:12 CONCLUSION: Mild plaquing in the right carotid system with less than 50% diameter stenosis by velocity criteria. Lower Extremity Ultrasound 11/26/18 14:12 CONCLUSION: 1. Venous mapping as above. Venous Doppler Study 11/26/18 14:12 CONCLUSION: 1. The study is negative for bilateral lower extremity deep venous thrombosis. Procedures Procedures: cardiac cath. Assessment and Plan Plan A/P NSTEMI -s/p cardiac cath with Severe and complex 2-vessel coronary artery disease. -CT surgery consulted for CABG. -continue Aspirin, Metoprolol, lisinopril and statin -Cardiology following. Hypertension -Continue home lisinopril- added Metoprolol. -Monitor trends in blood pressure readings and adjust treatment as indicated GERD -Protonix 40 mg IV ordered followed by 40 mg p.o. daily Anxiety/PTSD -Xanax dosing verified on [employer] website, Xanax 1 mg number 90/30-day supply last filled 11/09/2018 -we will continue Chronic back pain -Continue Flexeril DVT prophylaxis -pending CT surgery evaluation/ intervention. Discharge Planning: cardiac w/u in process. Progress Note: Quality VTE Deep Vein Thrombosis/Pulmonary Embolism Present on Admission: No
[2018-11-27 07:02] LABS: Platelet Estimate Normal (Normal); Platelet Morphology Normal (Normal); RBC Morphology Normal (Normal)
--- NOTE | 2018-11-27 07:21 | MB ---
cc: Gregoria Chavarria MD DATE: 11/26/2018 HISTORY OF PRESENT ILLNESS: This is a 58-year-old man with known coronary disease. He has had apparently 7 stents placed at [facility] in [place], [place]. He has lived down here for about 8 years, has not followed up with a desk maker. However, he was seen at [facility] in 2011 and had a negative nuclear stress test. He has multiple risk factors including age, coronary artery disease, hyperlipidemia, tobacco abuse, strong premature family history. The patient presented with chest pain. Also, feeling like the burning sensation was in his stomach, going up to his throat, became severe on Monday. He lives in the [facility] and was transferred from the [facility]. Troponin level was 1.42. He underwent cardiac catheterization by Dr. Patrick, which showed an EF of 60%, left main disease 30%, proximal LAD 90%, mid distal LAD 80%. The diagonal was 80% ostial, 70% circumflex. There was a 90% small right posterior artery. We were consulted to evaluate for coronary artery bypass grafting to the LAD, the diagonal, and the obtuse marginal. PAST MEDICAL HISTORY: Coronary artery disease, hypertension, hyperlipidemia, PTSD from deaths of colleagues while in the [employer], chronic tobacco abuse, chronic back pain. SURGICAL HISTORY: Coronary stents to the LAD and the circumflex laminectomy, cholecystectomy, previous fracture of the right ankle, the left femur, and the wrist. ALLERGIES: MORPHINE, CODEINE, DEMEROL, SULAR, AND LOVENOX. FAMILY HISTORY: Father at age 45 from an DC. Mother at age 87, history of atrial fibrillation. He had a brother who at age 52 from heart disease. 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 From smoking 1/2 pack for 45 years, he is down to 10 cigarettes a day. REVIEW OF SYSTEMS: GENERAL: No night sweats, fever, heat and cold intolerance. SKIN: No psoriasis, itching or hives. HEENT: No blurred vision, hearing loss. RESPIRATORY: Positive for recent shortness of breath. CARDIOVASCULAR: As above in the HPI. GASTROINTESTINAL: No diarrhea or vomiting. GENITOURINARY: No burning, frequency, urgency. CENTRAL NERVOUS SYSTEM: No history of TIA, CVA or seizure disorder. ENDOCRINOLOGY: No diabetes or hypothyroidism. PHYSICAL EXAMINATION: VITAL SIGNS: Blood pressure 147/80, heart rate is 60, afebrile. GENERAL: Awake, alert, in no acute distress. HEENT: Head is normocephalic, atraumatic. Pupils equal and reactive. Oral mucosa pink, moist. Fair dentition. NECK: Supple. No JVD. CARDIOVASCULAR: Heart sounds S1, S2. Regular rate and rhythm. No audible rubs, murmurs, or gallops. LUNGS: Clear to auscultation. No wheezes, rales or rhonchi. ABDOMEN: Soft, nontender. No masses or organomegaly. EXTREMITIES: No cyanosis, clubbing, or edema. LABORATORY DATA: Hemoglobin 15, hematocrit of 45, white cell count is 7.9, platelet count of 236. Sodium 138, potassium 4.1, BUN of 13, creatinine 1.02. Troponin peaked at 1.42, triglycerides 171, cholesterol 252. IMPRESSION: Again, 58-year-old male with multivessel coronary artery disease, prior stenting to the LAD and circumflex, now admitted with a non-STEMI. The coronary films have been evaluated by Dr. Gregoria Chavarria. PLAN: 1. Coronary artery bypass grafting x3 on , 11/29/2018. The patient is agreeable to proceed. 2. History of tobacco abuse. Smoking cessation indicated. 3. Hyperlipidemia. We will start with low-dose Lipitor for now. He has had some intolerance in the past. 4. Hypertension, controlled. 5. Post-PTSD. Would continue his home medications. Dictated by Cristina Carter APRN I personally interviewed this patient and examined him on 11/26/18 with the [employer]. I discussed recommendation for CABG as well as expected postop course and limitation once discharged. He understands risks and benefits of CABG and agrees to proceed. MD ANOOP Lynn/luis enrique , 03:35 PM , 03:44 PM DAVY
[2018-11-27] MEDS: Metoprolol Tartrate 25 MG Tablet PO SCH ×2 (08:30→20:40)
[2018-11-27] MEDS: Aspirin 325 MG Tablet PO SCH (08:30)
[2018-11-27 10:02] LABS: Bilirubin,Urine Negative (Negative); Clarity,Urine Clear (Clear); Color,Urine Straw (Yellw/Straw); Glucose,Urine (UA) Negative (Negative); Leukocyte Esterase,Urine Negative (Negative); Nitrite,Urine Negative (Negative); Specific Gravity,Urine 1.006 (1.002-1.035)
--- NOTE | 2018-11-27 10:40 | P.PNCA ---
Subjective Interval history: No angina Medications and Allergies Active Medications: Active Medications Alprazolam (Xanax) 1 mg PO Q8HR PRN PRN Reason: Anxiety Aspirin (Aspirin) 325 mg PO DAILY [facility] Last Admin: 11/27/18 08:30 Dose: 325 mg Atorvastatin Calcium (Lipitor) 10 mg PO HS [facility] Last Admin: 11/26/18 20:12 Dose: 10 mg Chlorhexidine Gluconate (Hibiclens 4% Topical) 1 applicatio TOPICAL FILM NUMBERER [facility] Stop: 12/02/18 14:12 Sodium Chloride 77.5 ml/Papaverine HCl 60 mg/Nitroglycerin 100 mcg/Diltiazem HCl 100 mg 0 ml IRRIGATION FILM NUMBERER [facility] Stop: 12/02/18 14:12 Sodium Chloride 500 ml/ (Cefazolin Sodium 500 mg) 0 ml IRRIGATION FILM NUMBERER [facility] Stop: 12/02/18 14:16 Cyclobenzaprine HCl (Flexeril) 10 mg PO TID PRN PRN Reason: MUSCLE SPAMPS Dextrose (D50w Vial) 50 ml IV.PUSH UNSCH PRN PRN Reason: PER HYPOGLYCEMIA PROTOCOL Diazepam (Valium) 5 mg PO FILM NUMBERER [facility] Stop: 11/30/18 07:59 Diphenhydramine HCl (Benadryl) 25 mg PO FILM NUMBERER [facility] Stop: 11/30/18 07:59 Heparin Sodium (Porcine) (Heparin Inj) 2,500 units IV.PUSH UNSCH PRN PRN Reason: aPTT 25-39 Last Admin: 11/26/18 20:12 Dose: 2,500 units Heparin Sodium (Porcine) (Heparin Inj) 5,000 units IV.PUSH UNSCH PRN PRN Reason: aPTT < 25 Sodium Chloride (Ns Inj) 1,000 mls @ 100 mls/hr IV.CONT .Q10H [facility] Last Admin: 11/27/18 08:31 Dose: 100 mls/hr Cefazolin Sodium/Dextrose (Ancef 2 Gm Premix Inj) 2 gm in 50 mls @ 100 mls/hr IV.SIG FILM NUMBERER [facility] Insulin Human Regular 100 unit (/ Sodium Chloride) 100 mls @ 3 mls/hr IV.CONT TITRATE PRN; Protocol PRN Reason: See Protocol Heparin Sodium/Dextrose (Heparin/D5w 25,000 U/250 Ml) 25,000 unit in 250 mls @ 0 mls/hr IV.CONT TITRATE PRN; Protocol PRN Reason: Per Protocol Last Admin: 11/27/18 07:42 Dose: 900 units/hr, 9 mls/hr Lisinopril (Prinivil) 10 mg PO [facility] Last Admin: 11/26/18 20:12 Dose: 10 mg Metoprolol Tartrate (Lopressor) 12.5 mg PO BID [facility] Last Admin: 11/27/18 08:30 Dose: 12.5 mg Metoprolol Tartrate (Lopressor) 12.5 mg PO FILM NUMBERER [facility] Stop: 12/02/18 14:16 Morphine Sulfate (Morphine Inj) 2 mg IV.PUSH Q4H PRN PRN Reason: Pain 3 to 10 Last Admin: 11/27/18 05:09 Dose: 2 mg Nitroglycerin (Nitrostat Sl) 0.4 mg SL Q5M PRN PRN Reason: CHEST PAIN Nitroglycerin (Nitro-Bid 2% Oint) 1 inch TOPICAL Q6HR [facility] Last Admin: 11/27/18 05:09 Dose: 1 inch Ondansetron HCl (Zofran Inj) 4 mg IV.PUSH Q6H PRN PRN Reason: NAUSEA Pantoprazole Sodium (Protonix) 40 mg PO DAILY [facility] Last Admin: 11/27/18 08:30 Dose: 40 mg Sodium Chloride (Ns Flush) 2 ml IV.FLUSH BID [facility] Last Admin: 11/27/18 08:31 Dose: Not Given Sodium Chloride (Ns Flush) 2 ml IV.FLUSH PRN PRN PRN Reason: FLUSH AFTER USING IV ACCESS Allergies Allergy/AdvReac Type Severity Reaction Status Date / Time No Known Allergies Allergy Verified 11/25/18 15:50 Home Medications Medication Instructions Recorded Confirmed Type alprazolam [Xanax] 1 mg PO PRN PRN 11/25/18 11/26/18 History cyclobenzaprine 10 mg PO PRN PRN 11/25/18 11/26/18 History lisinopril 10 mg PO 11/25/18 11/26/18 History Physical Exam Vital signs: Vital Signs 11/26/18 11:00 11/26/18 12:00 11/26/18 13:00 Temperature 97.8 F Pulse Rate 58 L 61 56 L Respiratory Rate 18 Blood Pressure 147/80 H Pulse Oximetry 95 11/26/18 14:00 11/26/18 15:00 11/26/18 16:00 Temperature Pulse Rate 60 58 L 63 Respiratory Rate Blood Pressure Pulse Oximetry 11/26/18 17:00 11/26/18 18:00 11/26/18 19:00 Temperature Pulse Rate 66 79 68 Respiratory Rate Blood Pressure Pulse Oximetry 11/26/18 19:54 11/26/18 20:00 11/26/18 21:00 Temperature Pulse Rate 64 68 Respiratory Rate 18 Blood Pressure Pulse Oximetry 11/26/18 22:00 11/26/18 23:00 11/26/18 23:56 Temperature Pulse Rate 62 65 Respiratory Rate 18 Blood Pressure Pulse Oximetry 11/27/18 00:00 11/27/18 01:00 11/27/18 02:00 Temperature Pulse Rate 72 64 58 L Respiratory Rate Blood Pressure Pulse Oximetry 11/27/18 03:00 11/27/18 03:16 11/27/18 04:00 Temperature Pulse Rate 62 58 L Respiratory Rate 18 Blood Pressure Pulse Oximetry 11/27/18 05:00 11/27/18 05:12 11/27/18 06:00 Temperature Pulse Rate 58 L 55 L Respiratory Rate 20 Blood Pressure Pulse Oximetry 11/27/18 07:00 11/27/18 08:00 Temperature Pulse Rate 62 Respiratory Rate Blood Pressure Pulse Oximetry 97 Intake & Output 11/26/18 11/27/18 11/27/18 18:59 06:59 18:59 Intake Total 482 / 482 1250 / 1250 Output Total 500 / 500 Balance 482 / 482 -500 / -500 1250 / 1250 Weight 80 kg Intake: IV 2 / 2 1250 / 1250 Heparin/NS PF Inj 1,000 ML @ 0 2 / 2 mls/hr .ROUTE .STK-MED ONE Rx#: [id number] Heparin/D5W 25,000 U/250 mL 25, 250 / 250 000 unit In 250 ml @ Per Protocol IV.CONT TITRATE PRN Rx #:[id number] NS Inj 1,000 ML @ 100 mls/hr IV 1000 / 1000 .CONT .Q10H [facility] Rx#:[id number] Oral 480 / 480 Output: Urine 500 / 500 Other: # Voids 4 6 Date of Last Bowel Movement 11/25/18 11/25/18 11/25/18 Narrative: Alert, NAD No JVD Chest Clear CV S1S2 RRR abd soft Ext no C/C/E. right wrist OK. Appreciate CT surgery input Results 11/27/18 03:32 11/27/18 03:32 Cardiac Enzymes 11/26/18 Range/Units 01:37 Troponin I 1.42 H* (0.02-0.05) ng/mL Coagulation 11/26/18 11/26/18 11/26/18 Range/Units 01:37 03:53 07:37 PT (9.8-11.6) sec APTT 40.0 H D 40.0 H 38.5 H (23.4-31.7) sec 11/26/18 11/26/18 11/27/18 Range/Units 17:29 21:18 03:32 PT 10.0 (9.8-11.6) sec APTT 37.6 H 76.5 H D 85.6 H (23.4-31.7) sec Lipids 11/26/18 Range/Units 01:37 Triglycerides 171 H (42-150) mg/dL Cholesterol 252 H (120-200) mg/dL HDL Cholesterol 41.1 (40.0-60.0) mg/dL Cholesterol/HDL Ratio 6.13 Ratio CBC 11/26/18 11/27/18 Range/Units 03:53 03:32 WBC 7.9 10.0 (4.0-11.0) th/mm3 RBC 4.84 4.70 (4.50-5.90) mil/mm3 Hgb 15.9 15.1 (13.0-17.0) gm/dL Hct 45.6 43.5 (39.0-51.0) % Plt Count 236 235 (150-450) th/mm3 Neut # (Auto) 5.5 (1.8-7.7) th/mm3 Lymph # (Auto) 3.6 (1.0-4.8) th/mm3 [place] # (Auto) 0.6 (0.0-0.9) th/mm3 Eos # (Auto) 0.2 (0.0-0.4) th/mm3 Baso # (Auto) 0.0 (0.0-0.2) th/mm3 Comprehensive Metabolic Panel 11/27/18 Range/Units 03:32 Sodium 139 (136-145) meq/L Potassium 3.7 (3.5-5.1) meq/L Chloride 104 (98-107) meq/L Carbon Dioxide 29.1 (21.0-32.0) meq/L BUN 13 (7-18) mg/dL Creatinine 0.88 (0.60-1.30) mg/dL Calcium 8.7 (8.5-10.1) mg/dL Intake and Output 11/26/18 11/27/18 11/27/18 22:59 06:59 14:59 Intake Total 480 / 480 1250 / 1250 Output Total 500 / 500 Balance 480 / 480 -500 / -500 1250 / 1250 Intake: IV 1250 / 1250 Heparin/D5W 25,000 U/250 mL 25, 250 / 250 000 unit In 250 ml @ Per Protocol IV.CONT TITRATE PRN Rx #:[id number] NS Inj 1,000 ML @ 100 mls/hr IV 1000 / 1000 .CONT .Q10H [facility] Rx#:[id number] Oral 480 / 480 Output: Urine 500 / 500 Other: # Voids 4 6 Date of Last Bowel Movement 11/25/18 11/25/18 11/25/18 Weight 80 kg - Imaging and Cardiology Imaging: Impressions Carotid Doppler Study 11/26/18 14:12 CONCLUSION: Mild plaquing in the right carotid system with less than 50% diameter stenosis by velocity criteria. Lower Extremity Ultrasound 11/26/18 14:12 CONCLUSION: 1. Venous mapping as above. Venous Doppler Study 11/26/18 14:12 CONCLUSION: 1. The study is negative for bilateral lower extremity deep venous thrombosis. Assessment and Plan - Assessment (1) Non-STEMI (non-ST elevated myocardial infarction) Code(s): I21.4 - Non-ST elevation (NSTEMI) myocardial infarction Status: Acute (2) 2-vessel coronary artery disease Code(s): I25.10 - Atherosclerotic heart disease of [place] coronary artery without angina pectoris Status: Acute (3) Tobacco abuse Code(s): Z72.0 - Tobacco use Status: Acute Plan: counseled to stop (4) Noncompliance Code(s): Z91.19 - Patient's noncompliance with other medical treatment and regimen Status: Acute Plan: CABG . I will see prn. Please call if questions.
--- NOTE | 2018-11-27 16:39 | P.PNCV ---
- Note Subjective/Hospital Course: pt mary well, no chest pain last pm for surgery on pt seen and evaluated, full consult to follow sts data discussed with pt Procedure: Isolated CAB CALCULATE Risk of Mortality: 0.708% Renal Failure: 0.593% Permanent Stroke: 0.765% Prolonged Ventilation: 3.822% DSW Infection: 0.152% Reoperation: 1.395% Morbidity or Mortality: 5.986% Short Length of Stay: 68.832% Long Length of Stay: 1.960% GENERAL: SKIN: Warm and dry. HEAD: Normocephalic. EYES: No scleral icterus. No injection or drainage. NECK: Supple, trachea midline. No JVD or lymphadenopathy. CARDIOVASCULAR: Regular rate and rhythm without murmurs, gallops, or rubs. RESPIRATORY: Breath sounds equal bilaterally. No accessory muscle use. GASTROINTESTINAL: Abdomen soft, non-tender, nondistended. MUSCULOSKELETAL: No cyanosis, or edema. BACK: Nontender without obvious deformity. No CVA tenderness. Objective: Vital Signs - 24 hr 11/26/18 17:00 11/26/18 18:00 11/26/18 19:00 Temperature Pulse Rate 66 79 68 Respiratory Rate Blood Pressure Pulse Oximetry 11/26/18 19:54 11/26/18 20:00 11/26/18 21:00 Temperature Pulse Rate 64 68 Respiratory Rate 18 Blood Pressure Pulse Oximetry 11/26/18 22:00 11/26/18 23:00 11/26/18 23:56 Temperature Pulse Rate 62 65 Respiratory Rate 18 Blood Pressure Pulse Oximetry 11/27/18 00:00 11/27/18 01:00 11/27/18 02:00 Temperature Pulse Rate 72 64 58 L Respiratory Rate Blood Pressure Pulse Oximetry 11/27/18 03:00 11/27/18 03:16 11/27/18 04:00 Temperature Pulse Rate 62 58 L Respiratory Rate 18 Blood Pressure Pulse Oximetry 11/27/18 05:00 11/27/18 05:12 11/27/18 06:00 Temperature Pulse Rate 58 L 55 L Respiratory Rate 20 Blood Pressure Pulse Oximetry 11/27/18 07:00 11/27/18 08:00 11/27/18 09:00 Temperature Pulse Rate 62 70 64 Respiratory Rate Blood Pressure Pulse Oximetry 97 11/27/18 10:00 11/27/18 11:00 11/27/18 12:00 Temperature Pulse Rate 64 62 60 Respiratory Rate Blood Pressure Pulse Oximetry 11/27/18 12:05 11/27/18 13:00 11/27/18 13:55 Temperature 98.3 F Pulse Rate 67 60 64 Respiratory Rate 16 Blood Pressure 168/96 H Pulse Oximetry 97 99 11/27/18 13:56 11/27/18 16:00 Temperature 98.0 F Pulse Rate 64 66 Respiratory Rate 16 Blood Pressure 157/89 H Pulse Oximetry 97 Labs: Laboratory Results - last 12 hr 11/27/18 11/27/18 11/27/18 03:32 03:32 03:32 WBC 10.0 RBC 4.70 Hgb 15.1 Hct 43.5 MCV 92.6 MCH 32.1 MCHC 34.7 RDW 13.7 Plt Count 235 MPV 8.1 Prelim Diff (Auto) Slide review pending Neut % (Auto) 54.7 Lymph % (Auto) 36.4 [place] % (Auto) 6.1 Eos % (Auto) 2.5 Baso % (Auto) 0.3 Neut # (Auto) 5.5 Lymph # (Auto) 3.6 [place] # (Auto) 0.6 Eos # (Auto) 0.2 Baso # (Auto) 0.0 WBC Differential . Diff Scan Auto diff confirmed Differential Comment . Platelet Estimate Normal Platelet Morphology Normal RBC Morphology Normal APTT 85.6 H Sodium 139 Potassium 3.7 Chloride 104 Carbon Dioxide 29.1 Anion Gap 6 BUN 13 Creatinine 0.88 Estimated GFR 88 L Random Glucose 104 Calcium 8.7 Urine Color Urine Clarity Urine pH Ur Specific Angela Urine Protein Urine Glucose (UA) Urine Ketones Urine Occult Blood Urine Nitrate Urine Bilirubin Urine Urobilinogen Ur Leukocyte Esterase Urine WBC Micro UA Comment Ur Microscopic Review Urine Culture Comments 11/27/18 11/27/18 09:30 13:52 WBC RBC Hgb Hct MCV MCH MCHC RDW Plt Count MPV Prelim Diff (Auto) Neut % (Auto) Lymph % (Auto) [place] % (Auto) Eos % (Auto) Baso % (Auto) Neut # (Auto) Lymph # (Auto) [place] # (Auto) Eos # (Auto) Baso # (Auto) WBC Differential Diff Scan Differential Comment Platelet Estimate Platelet Morphology RBC Morphology APTT 115.4 H* D Sodium Potassium Chloride Carbon Dioxide Anion Gap BUN Creatinine Estimated GFR Random Glucose Calcium Urine Color Straw Urine Clarity Clear Urine pH 7.0 Ur Specific Angela 1.006 Urine Protein Negative Urine Glucose (UA) Negative Urine Ketones Negative Urine Occult Blood Negative Urine Nitrate Negative Urine Bilirubin Negative Urine Urobilinogen Less than 2 Ur Leukocyte Esterase Negative Urine WBC Less than 1 Micro UA Comment Culture not ind Ur Microscopic Review Not Reportable Urine Culture Comments Culture not ind Result Diagrams: 11/27/18 03:32 11/27/18 03:32
[2018-11-27] MEDS: Heparin 10,000 UNITS/10 ML Vial (for IV use) IV.PUSH PRN (20:40)
[2018-11-28 02:10] LABS: Hematocrit 44.1 % (39.0-51.0); Hemoglobin 15.2 gm/dL (13.0-17.0); Mean Corpuscular HGB Conc 34.5 % (32.0-36.0); Mean Corpuscular Hemoglobin 32.2 pg (27.0-34.0); Mean Corpuscular Volume 93.4 fL (80.0-100.0); Mean Platelet Volume 7.6 fL (7.0-11.0); Platelet Count 249 th/mm3 (150-450); Red Blood Count 4.72 mil/mm3 (4.50-5.90); Red Cell Distribution Width 13.7 % (11.6-17.2); White Blood Count 8.6 th/mm3 (4.0-11.0)
[2018-11-28] MEDS: Morphine Inj 4 MG/ML Vial IV.PUSH PRN ×3 (02:20→11:47)
[2018-11-28] MEDS: Heparin 10,000 UNITS/10 ML Vial (for IV use) IV.PUSH PRN ×2 (03:39→12:47)
[2018-11-28] MEDS ORDERED: Acetaminophen 325 MG Tablet PO ONE (04:10)
[2018-11-28] MEDS: Sod Chloride 0.9% Inj 1,000 ML IV.CONT SCH ×2 (05:04→17:09)
[2018-11-28] MEDS: Metoprolol Tartrate 25 MG Tablet PO SCH ×2 (09:11→21:01)
[2018-11-28] MEDS: Aspirin 325 MG Tablet PO SCH (09:12)
--- NOTE | 2018-11-28 09:12 | P.PNCV ---
- Note Subjective/Hospital Course: HISTORY OF PRESENT ILLNESS: This is a 58-year-old man with known coronary disease. He has had apparently [address] [facility] in [place], [place]. He has lived down here for about 8 years, has not followed up with a clinical account executive. However, he was seen at [facility] in 2011 and had a negative nuclear stress test. He has multiple risk factors including age, coronary artery disease, hyperlipidemia, tobacco abuse, strong premature family history. The patient presented with chest pain. Also, feeling like the burning sensation was in his stomach, going up to his throat, became severe on Monday. He lives in the [facility] and was transferred from the [facility]. Troponin level was 1.42. He underwent cardiac catheterization by Dr. Patrick, which showed an EF of 60%, left main disease 30% , proximal LAD 90%, mid distal LAD 80%. The diagonal was 80% ostial, 70% circumflex. There was a 90% small right posterior artery. We were consulted to evaluate for coronary artery bypass grafting to the LAD, the diagonal, and the obtuse marginal. PAST MEDICAL HISTORY: Coronary artery disease, hypertension, hyperlipidemia, PTSD from deaths of colleagues while in the [employer], chronic tobacco abuse, chronic back pain. for surgery on 11/28 no chest pain , for surgery in am Objective: Vital Signs - 24 hr 11/27/18 10:00 11/27/18 11:00 11/27/18 12:00 Temperature Pulse Rate 64 62 60 Respiratory Rate Blood Pressure Pulse Oximetry 11/27/18 12:05 11/27/18 13:00 11/27/18 13:55 Temperature 98.3 F Pulse Rate 67 60 64 Respiratory Rate 16 Blood Pressure 168/96 H Pulse Oximetry 97 99 11/27/18 13:56 11/27/18 15:00 11/27/18 16:00 Temperature 98.0 F Pulse Rate 64 60 62 Respiratory Rate 16 Blood Pressure 157/89 H Pulse Oximetry 97 11/27/18 17:21 11/27/18 18:00 11/27/18 19:00 Temperature Pulse Rate 64 60 67 Respiratory Rate Blood Pressure Pulse Oximetry 11/27/18 19:38 11/27/18 20:00 11/27/18 21:00 Temperature 97.8 F Pulse Rate 69 58 L 62 Respiratory Rate 18 Blood Pressure 157/78 H Pulse Oximetry 96 11/27/18 22:00 11/27/18 23:00 11/28/18 00:00 Temperature 98.1 F Pulse Rate 61 60 60 Respiratory Rate 16 Blood Pressure 150/82 H Pulse Oximetry 96 11/28/18 01:00 11/28/18 02:00 11/28/18 02:20 Temperature 98 F Pulse Rate 62 54 L 62 Respiratory Rate 18 Blood Pressure 108/71 Pulse Oximetry 98 11/28/18 03:00 11/28/18 04:00 11/28/18 05:00 Temperature Pulse Rate 59 L 60 57 L Respiratory Rate Blood Pressure Pulse Oximetry 11/28/18 06:00 11/28/18 07:00 11/28/18 08:00 Temperature 97.5 F L Pulse Rate 55 L 57 L 55 L Respiratory Rate 18 Blood Pressure 116/74 Pulse Oximetry 98 GENERAL: SKIN: Warm and dry. HEAD: Normocephalic. EYES: No scleral icterus. No injection or drainage. NECK: Supple, trachea midline. No JVD or lymphadenopathy. CARDIOVASCULAR: Regular rate and rhythm without murmurs, gallops, or rubs. RESPIRATORY: Breath sounds equal bilaterally. No accessory muscle use. GASTROINTESTINAL: Abdomen soft, non-tender, nondistended. MUSCULOSKELETAL: No cyanosis, or edema. BACK: Nontender without obvious deformity. No CVA tenderness. Labs: Laboratory Results - last 12 hr 11/28/18 11/28/18 11/28/18 01:50 01:50 01:50 WBC 8.6 RBC 4.72 Hgb 15.2 Hct 44.1 MCV 93.4 MCH 32.2 MCHC 34.5 RDW 13.7 Plt Count 249 MPV 7.6 APTT 35.3 H Blood Type O Positive Blood Type Recheck Required Antibody Screen Negative MTS Gel Crossmatch See Detail Bld Prod Order Comment Result Diagrams: 11/28/18 01:50 11/27/18 03:32 - Plan (2) 2-vessel coronary artery disease Plan: on ASA, statin for surgery in am
--- NOTE | 2018-11-28 10:20 | P.PNIM ---
Subjective Interval history: f/u; CAD in no acute distress. has slight chest pain and headache. no other new complaints. Physical Exam Vital signs: Vital Signs 11/27/18 11:00 11/27/18 12:00 11/27/18 12:05 Temperature 98.3 F Pulse Rate 62 60 67 Respiratory Rate 16 Blood Pressure 168/96 H Pulse Oximetry 97 11/27/18 13:00 11/27/18 13:55 11/27/18 13:56 Temperature Pulse Rate 60 64 64 Respiratory Rate Blood Pressure Pulse Oximetry 99 11/27/18 15:00 11/27/18 16:00 11/27/18 17:21 Temperature 98.0 F Pulse Rate 60 62 64 Respiratory Rate 16 Blood Pressure 157/89 H Pulse Oximetry 97 11/27/18 18:00 11/27/18 19:00 11/27/18 19:38 Temperature 97.8 F Pulse Rate 60 67 69 Respiratory Rate 18 Blood Pressure 157/78 H Pulse Oximetry 96 11/27/18 20:00 11/27/18 21:00 11/27/18 22:00 Temperature Pulse Rate 58 L 62 61 Respiratory Rate Blood Pressure Pulse Oximetry 11/27/18 23:00 11/28/18 00:00 11/28/18 01:00 Temperature 98.1 F Pulse Rate 60 60 62 Respiratory Rate 16 Blood Pressure 150/82 H Pulse Oximetry 96 11/28/18 02:00 11/28/18 02:20 11/28/18 03:00 Temperature 98 F Pulse Rate 54 L 62 59 L Respiratory Rate 18 Blood Pressure 108/71 Pulse Oximetry 98 11/28/18 04:00 11/28/18 05:00 11/28/18 06:00 Temperature Pulse Rate 60 57 L 55 L Respiratory Rate Blood Pressure Pulse Oximetry 11/28/18 07:00 11/28/18 08:00 11/28/18 09:00 Temperature 97.5 F L Pulse Rate 57 L 55 L 64 Respiratory Rate 18 Blood Pressure 116/74 Pulse Oximetry 98 11/28/18 09:17 11/28/18 10:00 Temperature Pulse Rate 66 Respiratory Rate Blood Pressure Pulse Oximetry 95 Intake & Output 11/27/18 11/28/18 11/28/18 18:59 06:59 18:59 Intake Total 1890 / 1890 2080 / 2080 Output Total 1250 / 1250 Balance 640 / 640 2080 / 2080 Weight 80.2 kg Intake: IV 1250 / 1250 1600 / 1600 Heparin/D5W 25,000 U/250 mL 25, 250 / 250 000 unit In 250 ml @ Per Protocol IV.CONT TITRATE PRN Rx #:[id number] NS Inj 1,000 ML @ 100 mls/hr IV 1000 / 1000 1600 / 1600 .CONT .Q10H [facility] Rx#:[id number] Oral 640 / 640 480 / 480 Output: Urine 1250 / 1250 Other: # Voids 3 Date of Last Bowel Movement 11/25/18 Constitutional no acute distress Routine Respiratory Exam Present CTA bilaterally Routine Cardiovascular Exam Present RRR Routine Abdominal Exam Present soft Routine Extremities Exam Comments: no pedal edema. Routine Neurological Exam Present alert and oriented X3 Results Labs CBC & Chem 7: 11/28/18 01:50 11/27/18 03:32 Procedures Procedures: cardiac cath. Assessment and Plan (1) Non-STEMI (non-ST elevated myocardial infarction): Code(s): I21.4 - Non-ST elevation (NSTEMI) myocardial infarction Status: Acute (2) 2-vessel coronary artery disease: Code(s): I25.10 - Atherosclerotic heart disease of [place] coronary artery without angina pectoris Status: Acute (3) Tobacco abuse: Code(s): Z72.0 - Tobacco use Status: Acute Plan A/P NSTEMI -s/p cardiac cath with Severe and complex 2-vessel coronary artery disease. -CT surgery consulted for CABG; tomorrow. -continue Aspirin, Metoprolol, lisinopril and statin -Cardiology following. Hypertension -Continue home lisinopril and Metoprolol. -Monitor trends in blood pressure readings and adjust treatment as indicated GERD -Protonix 40 mg IV ordered followed by 40 mg p.o. daily Anxiety/PTSD -Xanax dosing verified on [employer] -per website, Xanax 1 mg number 90/30-day supply last filled 11/09/2018 -we will continue Chronic back pain -Continue Flexeril DVT prophylaxis -pending CT surgery evaluation/ intervention. Discharge Planning: for CABG in am. Progress Note: Quality VTE Deep Vein Thrombosis/Pulmonary Embolism Present on Admission: No
[2018-11-28] MEDS: Acetaminophen 325 MG Tablet PO PRN ×2 (12:48→17:35)
[2018-11-28] MEDS ORDERED: Sodium Chlor 0.9% Inj 500 ML IV.CONT ONE (23:45)
[2018-11-28] MEDS ORDERED: Chlorhexidine Gluconate 2% 1 Pack (2 Cloths) TOPICAL ONE (23:45)
[2018-11-29] MEDS: Sod Chloride 0.9% Inj 1,000 ML IV.CONT SCH (00:04)
[2018-11-29 05:06] LABS: Hematocrit 44.6 % (39.0-51.0); Hemoglobin 15.5 gm/dL (13.0-17.0); Mean Corpuscular HGB Conc 34.7 % (32.0-36.0); Mean Corpuscular Hemoglobin 32.2 pg (27.0-34.0); Mean Corpuscular Volume 92.6 fL (80.0-100.0); Mean Platelet Volume 8.4 fL (7.0-11.0); Platelet Count 240 th/mm3 (150-450); Red Blood Count 4.82 mil/mm3 (4.50-5.90); Red Cell Distribution Width 13.7 % (11.6-17.2); White Blood Count 9.7 th/mm3 (4.0-11.0)
--- NOTE | 2018-11-29 07:14 | P.PNIM ---
Subjective Interval history: f/u; CAD in no acute distress. had slight chest pain last night. headache has resolved. no new complaints. Physical Exam Vital signs: Vital Signs 11/28/18 08:00 11/28/18 09:00 11/28/18 09:17 Temperature 97.5 F L Pulse Rate 55 L 64 Respiratory Rate 18 Blood Pressure 116/74 Pulse Oximetry 98 95 11/28/18 10:00 11/28/18 11:00 11/28/18 12:00 Temperature 97.9 F Pulse Rate 66 64 64 Respiratory Rate 18 Blood Pressure 108/68 Pulse Oximetry 97 11/28/18 13:00 11/28/18 14:00 11/28/18 15:00 Temperature Pulse Rate 62 62 64 Respiratory Rate Blood Pressure Pulse Oximetry 11/28/18 15:18 11/28/18 16:00 11/28/18 17:00 Temperature 98.0 F Pulse Rate 66 66 68 Respiratory Rate 18 Blood Pressure 144/82 H Pulse Oximetry 98 11/28/18 18:00 11/28/18 19:00 11/28/18 20:00 Temperature 99.2 F Pulse Rate 64 62 61 Respiratory Rate 20 Blood Pressure 157/82 H Pulse Oximetry 99 98 11/28/18 21:00 11/28/18 21:15 11/28/18 22:00 Temperature Pulse Rate 64 62 Respiratory Rate Blood Pressure Pulse Oximetry 98 11/28/18 22:19 11/28/18 23:00 11/29/18 00:00 Temperature 98.6 F Pulse Rate 64 57 L 62 Respiratory Rate 20 Blood Pressure 123/73 Pulse Oximetry 99 11/29/18 01:00 11/29/18 02:00 11/29/18 03:00 Temperature Pulse Rate 61 56 L 58 L Respiratory Rate Blood Pressure Pulse Oximetry 11/29/18 04:00 11/29/18 05:00 11/29/18 05:49 Temperature Pulse Rate 57 L 60 58 L Respiratory Rate Blood Pressure Pulse Oximetry 11/29/18 07:00 Temperature Pulse Rate 58 L Respiratory Rate Blood Pressure Pulse Oximetry Intake & Output 11/28/18 11/29/18 11/29/18 18:59 06:59 18:59 Intake Total 2024 / 202 240 / 240 Output Total 800 / 800 Balance 1225 / 1225 240 / 240 Weight 79.1 kg Intake: IV 1000 / 1000 NS Inj 1,000 ML @ 100 mls/hr IV 1000 / 1000 .CONT .Q10H CHUY Rx#:[id number] Oral 1025 / 1025 240 / 240 Output: Urine 800 / 800 Other: # Voids 3 Date of Last Bowel Movement 11/27/18 11/27/18 # Bowel Movements 0 Constitutional no acute distress Routine Respiratory Exam Present CTA bilaterally Routine Cardiovascular Exam Present RRR Routine Abdominal Exam Present soft Routine Extremities Exam Comments: no pedal edema. Routine Neurological Exam Present alert and oriented X3 Results Labs CBC & Chem 7: 11/29/18 04:00 11/27/18 03:32 Procedures Procedures: cardiac cath. Assessment and Plan (1) Non-STEMI (non-ST elevated myocardial infarction): Code(s): I21.4 - Non-ST elevation (NSTEMI) myocardial infarction Status: Acute (2) 2-vessel coronary artery disease: Code(s): I25.10 - Atherosclerotic heart disease of [place] coronary artery without angina pectoris Status: Acute (3) Tobacco abuse: Code(s): Z72.0 - Tobacco use Status: Acute Plan A/P NSTEMI -s/p cardiac cath with Severe and complex 2-vessel coronary artery disease. -CT surgery consulted for CABG today. -continue Aspirin, Metoprolol, lisinopril and statin -Cardiology following. Hypertension -Continue home lisinopril and Metoprolol. -Monitor trends in blood pressure readings and adjust treatment as indicated GERD -continue Protonix. Anxiety/PTSD -Xanax dosing verified on [employer] website, Xanax 1 mg number 90/30-day supply last filled 11/09/2018 -we will continue Chronic back pain -Continue Flexeril DVT prophylaxis -pending CT surgery intervention. Discharge Planning: for CABG today. Progress Note: Quality VTE Deep Vein Thrombosis/Pulmonary Embolism Present on Admission: No
[2018-11-29] MEDS ORDERED: Cardioplegic Irr Soln 2,000 ML IRRIGATION ONE (07:15)
[2018-11-29] MEDS ORDERED: Heparin 10,000 UNITS/10 ML Vial (for IV use) ONE ×2 (07:16→07:17)
[2018-11-29] MEDS ORDERED: Albumin Human 25% Inj 50 ML IV.SIG ONE (07:17)
[2018-11-29] MEDS ORDERED: Midazolam Inj 5 MG/ML 1 ML Vial ONE (07:57)
[2018-11-29] MEDS ORDERED: fentaNYL Citrate Inj 250 MCG/5 ML Ampul ONE ×2 (07:57→08:53)
[2018-11-29] MEDS ORDERED: ceFAZolin 2 GM Premix Inj 0 GM/0 ML PIGGYBACK IV.SIG ONE (07:59)
[2018-11-29] MEDS ORDERED: MethylPREDNISolone Sod Succinate Inj 125 MG/2 ML Vial ONE (07:59)
[2018-11-29] MEDS ORDERED: Heparin - SQ 10,000 UNITS/ML Vial ONE (08:00)
[2018-11-29] MEDS ORDERED: Protamine Sulfate Inj 50 MG/5 ML Vial IV.CONT ONE (08:18)
[2018-11-29] MEDS ORDERED: Calcium Chloride Inj 1 GM/10 ML Syringe IV.CONT ONE (08:18)
[2018-11-29] MEDS ORDERED: Aminocaproic Acid Inj 5,000 MG/20 ML Vial IV.CONT ONE (08:18)
[2018-11-29] MEDS ORDERED: Lidocaine PF 1% Inj 5 ML Syringe OTHER ONE (08:18)
[2018-11-29] MEDS ORDERED: Heparin - SQ 10,000 UNITS/ML Vial OTHER ONE (08:18)
[2018-11-29] MEDS ORDERED: Phenylephrine/NS 1000 MCG/10ML Syringe IV.PUSH ONE (08:18)
[2018-11-29] MEDS ORDERED: Dexmedetomidine Inj 200 MCG/2 ML Vial IV.CONT ONE (08:18)
--- NOTE | 2018-11-29 11:13 | P.DCO ---
- Diagnosis (1) S/P CABG (coronary artery bypass graft) Status: Acute (2) Non-STEMI (non-ST elevated myocardial infarction) Status: Acute (3) 2-vessel coronary artery disease Status: Acute (4) Tobacco abuse Status: Chronic - Home Health Nursing Order: Medical education, Signs/symptoms of disease process, Wound care and dressing changes, Nursing assessment with vital signs Instructions: Heart and Vascular Surgery patients *Special attention to sternal dressing Mandatory frequency Assess and evaluation, 4 days in a row The next week 3X week 2 times a week for 4 weeks 1 time a week for 5 weeks Schedule Heart and Vascular patients for full 60 day certification period Initial visit Review Open Heart Surgery Discharge Instructions (Sternal precautions, Activity, Elastic hose, Incision care, Driving, Incentive spirometry, Smoking, Exline, Work and other) Need Betadine to paint incision Medication reconciliation Importance of follow up care/ check on appointments Make calendar record temperature daily When to call [facility] at Home nurse, review instructions, phone list Incentive Spirometry, demonstration Visit 1- Begin discharge instruction for patient family and/ or caregiver using teach back method- Signs and symptoms of infection Disease characteristics Medicines and side effects Foods and nutrition/ appetite Infection control/ hand washing/ hygiene Visit 2- Continue teaching Discharge instructions- include additional information on smoking cessation , sternal dressing (sternal vac) Visit 3- Continue teaching- Cough and deep breathing, incision monitoring. Choose my plate Visit 4- Continue teaching- Discuss limitations Discuss how they are feeling Discuss progress toward goals Remaining visits- continue teaching and monitoring For any questions please call : Monday 8am-5pm Heart & Vascular Surgery Office ( Dr. May & Dr. Chavarria), After Hours / Nights (5pm -8am) Weekends and Holidays Please call [facility] Cardiac Intermediate Care Unit (CIC) Charge Nurse PREVENA Single Use Negative Wound Therapy System Caregiver Instruction Sheet 1. A Prevena dressing system was applied to the chest incision during surgery , to promote wound healing. It works via a suction device (negative pressure wound therapy) to remove low to moderate levels of exudate (drainage) and infectious materials. We recommend that the device stay in place for up to seven days, from day of surgery. 2. Day of Surgery____11/29/ Day of Removal ____2/ 3. The dressing should only be removed by a health lpn care manager. Please arrange removal of device to coincide with Home Health visit and or with Nursing staff at Rehab 4. If skin reddening or irritation of skin occurs, or excessive drainage, please notify the Cardiovascular Surgeons office at [phone]. 5. Light showering is permissible; however the pump should be disconnected and placed in safe location, where it will not get wet. The dressing should not be exposed to direct spray or submerged in water. No bath tub / shower only. Ensure the end of the tubing attached to the dressing is facing down so that water does not enter the top of the tube. 6. To remove Prevena dressing: press purple button to turn off device / remove the suction. Then disconnect the tubing from the pump. The fixation strips should be stretched away from the skin and the dressing lifted at one corner and peeled back until it has been fully removed. 7. After removal, it is ok to shower daily using liquid dial soap and clean wash cloth, rinse and pat dry, and leave incision open to air dry. For any concerns regarding Prevena dressing, and or wounds, please contact Lee Ann Ferreira, patient navigator at [phone] or notify the Cardiovascular Surgeons office at [phone]. Incentive spirometry Q1 hr x 10, while awake, also use acapella device hourly whole awake Sternal Breast Bone Precautions: NO pushing or pulling, ( pt must use sternal pillow to support chest with all activities and with coughing ( takes up to 3 months breast bone to heal ) Daily incision care: ok to shower daily, no tub bath. Wash all incisions with liquid dial soap, clean wash cloth to each site, rinse and pat dry. Observe for any signs of infection, such as drainage which is dark yellow, moore, green or foul smelling. Immediately report to the surgeon any drainage from the chest incision, or legs, and for any abnormal drainage from the chest tube sites. Notify surgeon if any temp >101.5 degrees F. When specialty dressing removed/ or if you do not have one, continue to shower daily as above, then rinse and pat incision dry and paint with betadine daily x 5 days. Allow steri strips to fall off if you have any. Avoid lotions, creams, salves, oils, etc. for the first month Please see attached forms for additional instructions regarding post Open Heart specialty wound vacuum dressings. JAMES or Prevena , Dressing to be removed by Nursing staff on __12/06/[address] Chavarria patients , please obtain CBC, BMP, PA & Lat CXR in 2 weeks, results to Dr. Chavarria ( prescription will be given) ( ) (Tele: [phone]) , F/U appointment: as per ID instructions: PCP in 2 weeks, CV surgeon 2 weeks, Remelt Operator 3-4 weeks For any questions regarding incisions/ dressing / meds / post op care or above Symptoms, Monday 8am-5pm Heart & Vascular Surgery Office ( Dr. May & Dr. Chavarria), After Hours / Nights (5pm -8am) Weekends and Holidays Please call [facility] Cardiac Intermediate Care Unit (CIC) Charge Nurse - Case Management Consult Case Management Consult-Home Health: Yes - Certification I have seen patient Freddy Leon on 11/29/18. My clinical findings support the need for the requested home health care services because: Deconditioned with increased weakness I certify that my clinical findings support that this patient is homebound because: Post-op weakness
[2018-11-29] MEDS ORDERED: Metoprolol Inj 5 MG/5 ML Vial IV.PUSH PRN (11:37)
[2018-11-29] MEDS ORDERED: hydrALAZINE HCl Inj 20 MG/ML Vial IV.PUSH PRN (11:37)
[2018-11-29] MEDS ORDERED: Calcium Chloride Inj 1 GM/10 ML Syringe IV.PUSH PRN (11:37)
[2018-11-29] MEDS ORDERED: Magnesium Sulfate Inj 2 GM in Sodium Chlor 0.9% Inj 96 ML IV.SIG PRN ×4 (11:37)
[2018-11-29] MEDS ORDERED: RESP: Racemic Epinephrine 2.25% 0.5 ML Neb NEB PRN (11:37)
[2018-11-29] MEDS ORDERED: Potassium Chlor 20 mEq Premix 20 MEQ/100 ML PIGGYBACK IV.SIG PRN ×2 (11:37)
[2018-11-29] MEDS ORDERED: Dexmedetomidine Inj 200 MCG in Sodium Chlor 0.9% Inj 48 ML IV.CONT PRN (11:37)
[2018-11-29] MEDS ORDERED: Post-op Orders (for Pharmacy) OTHER STA (11:37)
[2018-11-29] MEDS ORDERED: Insulin Regular (For Infusion) 100 UNIT in Sodium Chlor 0.9% Inj 99 ML IV.CONT PRN (11:37)
[2018-11-29] MEDS ORDERED: Calcium Chloride Inj 1 GM in Sodium Chlor 0.9% Inj 100 ML IV.SIG PRN (11:37)
[2018-11-29] MEDS ORDERED: Dextrose 50% in Water 50 ML Vial IV.PUSH PRN (11:37)
[2018-11-29] MEDS ORDERED: Albumin Human 5% Inj 250 ML IV.SIG PRN (11:37)
--- NOTE | 2018-11-29 11:45 | P.OP ---
- Preoperative Diagnosis (1) Non-STEMI (non-ST elevated myocardial infarction) (2) 2-vessel coronary artery disease Postoperative Diagnosis: same Date of procedure: 11/29/18 Procedure: CABG x 3 SIMS to LAd - good SVG to OM - good SVG to D1 - good EVH JAZMINE Anesthesia: MARIANAA Surgeon: Gregoria Chavarria MD Exhaust Emissions Automotive Technician: Casandra Gonzalez Pathology: none sent Operation and Findings: The risks, benefits, complications, treatment options, and expected outcomes were discussed with the patient. The possibilities of reaction to medication, pulmonary aspiration, perforation of viscus, bleeding, recurrent infection, the need for additional procedures, failure to diagnose a condition, and creating a complication requiring transfusion or operation were discussed with the patient. The patient concurred with the proposed plan, giving informed consent. The site of surgery properly noted/marked. The patient was taken to Operating Room, identified as Freddy Leon and the procedure verified as CABG, EVH, JAZMINE. A Time Out was held and the above information confirmed. Standard monitoring lines and Neri catheter were placed. General anesthesia was induced. The patient was prepped and draped in a sterile fashion. A median sternotomy was performed and electrocautery was used to obtain hemostasis. The left internal mammary artery was procured as a pedicle from the 7th rib to the 1st rib in the usual manner. Simultaneously left greater saphenous vein was procured from the left leg using a minimally invasive endoscopic technique. The vein was prepared for anastomosis and the leg wound was irrigated and closed in 2 layers. The pericardium was opened and a pericardial sling was created using interrupted 0 silk sutures. The patient was heparinized for cardiopulmonary bypass and the distal mammary pedicle was instrumented for anastomosis. The heart was instrumented for cardiopulmonary bypass in the usual manner. Antegrade blood cardioplegia was employed. The patient was placed on cardiopulmonary bypass. An aortic cross-clamp was applied and the heart was arrested using cold blood cardioplegia. Antegrade cardioplegia was administered after he each anastomosis. After adequate arrest, the OM artery was opened with a [place] blade and found to be a 1.5 millimeter good target. Saphenous vein was approximated to the OM1 artery using a running 7 0 Prolene suture. The graft was measured for length and orientation and the proximal anastomosis was constructed to the ascending aorta using a running 5 0 Prolene suture after creating an aortotomy with a 5 millimeter punch. The 1st diagonal artery was then opened with a [place] blade and found to be a 1.5 millimeter good target. Saphenous vein was approximated to the D1 artery using a running 7 0 Prolene suture. The graft was measured for length and orientation and was suspended from the pericardium. The distal LAD was opened with a [place] blade and found to be a 1.5 millimeter good target. The left internal mammary artery was approximated to the LAD using a running 7 0 Prolene suture. The pedicle was attached to the epicardium using interrupted 5 0 silk suture. The patient was systemically rewarmed and received a hotshot dose of warm blood cardioplegia. The aorta was vented and the proximal anastomosis to the D1 graft was accomplished using a running 5 0 Prolene suture after creating an aortotomy was a 5 millimeter punch. The cross -clamp was removed and all proximal and distal anastomoses were examined for hemostasis. The patient was weaned from cardiopulmonary bypass. Protamine was given. There was no adverse reaction. Decannulation was carried out without incident. Wound was checked for hemostasis which was obtained using electrocautery. A 36 [place] mediastinal and 32 [place] left pleural chest tubes were placed and secured to the skin with 0 silk suture. The sternum was closed with stainless steel wire. The fascia was closed with 1. PDS. The subcutaneous tissue was closed using a running 2-0 Vicryl suture. The skin was closed with 4- 0 Monocryl. Sterile dressings were placed. At the end of the operation, all sponge, instruments, and needle counts were correct. The patient was transferred to the CVICU in stable condition. Findings: good distal targets XC: 45 min CPB: 51 min Drains: mediastinal x 1 pleural x 1 Complications: none
[2018-11-29] MEDS: Potassium Chlor 20 mEq Premix 20 MEQ/100 ML PIGGYBACK IV.SIG PRN ×3 (12:30→16:50)
--- NOTE | 2018-11-29 12:59 | XR ---
EXAM DATE: 11/29/2018 12:39 PM EST AGE/SEX: 58 years / Male INDICATIONS: Post heart surgery CLINICAL DATA: This is the patient's subsequent encounter. Patient reports that signs and symptoms h ave been present for 4 - 6 days and indicates a pain score of Nonresponsive. MEDICAL/SURGICAL HISTORY: Cardiovascular disease. . Stent COMPARISON: [facility], CHEST 1V SINGLE AP, 11/25/2018. . FINDINGS: Endotracheal tube tip is 3.5 cm above the monae. Right internal jugular catheter tip at the cavoatri al junction. Gastric tube traverses the [id number]. Left chest drainage tube at the apex. Consolid ation with lower lung with loss of delineation left hemidiaphragm. The right lung is clear. Sternal w augustin sutures. Heart size is normal. CONCLUSION: 1. Left lower lung consolidation. 2. Lines and tubes as described above. Electronically signed by: Spencer Bartholomew MD Board Certified Radiologist 11/29/2018 12:57 PM EST
[2018-11-29] MEDS: fentaNYL Citrate Inj 100 MCG/2 ML Ampul IV.PUSH PRN ×7 (13:27→23:15)
[2018-11-29] MEDS: Metoprolol Tartrate 25 MG Tablet PO SCH ×2 (14:13→20:51)
[2018-11-29] MEDS: Amiodarone 200 MG Tablet PO SCH ×2 (14:39→21:05)
[2018-11-29] MEDS ORDERED: Metoprolol Inj 5 MG/5 ML Vial IV.PUSH ONE (16:45)
[2018-11-29] MEDS: Ketorolac Inj 30 MG/ML (IVP) Vial IV.PUSH PRN ×2 (16:51→23:05)
[2018-11-29] MEDS: ceFAZolin Inj 1 GM in Sodium Chlor 0.9% Inj 100 ML IV.SIG SCH (18:00)
[2018-11-29] MEDS: Clevidipine Inj 25 MG/50 ML VIAL IV.CONT PRN (18:45)
[2018-11-30] MEDS: fentaNYL Citrate Inj 100 MCG/2 ML Ampul IV.PUSH PRN ×2 (00:15→03:20)
[2018-11-30] MEDS: Clevidipine Inj 25 MG/50 ML VIAL IV.CONT PRN (02:50)
[2018-11-30] MEDS: ceFAZolin Inj 1 GM in Sodium Chlor 0.9% Inj 100 ML IV.SIG SCH ×3 (03:12→18:12)
[2018-11-30 04:41] LABS: Hematocrit 45.6 % (39.0-51.0); Hemoglobin 15.7 gm/dL (13.0-17.0); Mean Corpuscular HGB Conc 34.5 % (32.0-36.0); Mean Corpuscular Hemoglobin 32.3 pg (27.0-34.0); Mean Corpuscular Volume 93.5 fL (80.0-100.0); Platelet Count 235 th/mm3 (150-450); Red Blood Count 4.88 mil/mm3 (4.50-5.90); Red Cell Distribution Width 13.8 % (11.6-17.2); White Blood Count 24.3 th/mm3 (4.0-11.0)
[2018-11-30 05:05] LABS: Calcium 8.9 mg/dL (8.5-10.1); Carbon Dioxide 27.1 meq/L (21.0-32.0); Magnesium 2.2 mg/dL (1.5-2.5); Potassium 4.2 meq/L (3.5-5.1)
--- NOTE | 2018-11-30 06:26 | XR ---
EXAM DATE: 11/30/2018 6:16 AM EST AGE/SEX: 58 years / Male INDICATIONS: Post CABG. CLINICAL DATA: This is the patient's subsequent encounter. Patient reports that signs and symptoms h ave been present for 4 - 6 days and indicates a pain score of Nonresponsive. MEDICAL/SURGICAL HISTORY: . Cardiovascular disease. CABG. Stent COMPARISON: [facility], CHEST 1V SINGLE AP, 11/29/2018. . FINDINGS: There has been interval extubation and removal of nasogastric tube. Right neck central catheter remai ns in place. Thoracostomy tubes remain in place. There is mild atelectasis in the left lung base. Chel gs are otherwise focally clear. Slight left effusion CONCLUSION: Interval removal of endotracheal tube. Persistent mild pleural-parenchymal opacity at the left lung b ase. Electronically signed by: Godwin Lomeli MD Board Certified Radiologist 11/30/2018 6:24 AM EST
[2018-11-30] MEDS: Amiodarone 200 MG Tablet PO SCH ×3 (06:29→22:04)
[2018-11-30] MEDS: Ketorolac Inj 30 MG/ML (IVP) Vial IV.PUSH PRN (08:07)
[2018-11-30] MEDS: Metoprolol Tartrate 25 MG Tablet PO SCH ×2 (08:08→20:48)
[2018-11-30] MEDS ORDERED: ALPRAZolam 0.5 MG Tablet PO PRN (10:23)
[2018-11-30] MEDS ORDERED: Bisacodyl 10 MG Supp RECTAL PRN (10:23)
[2018-11-30] MEDS ORDERED: Sod Phosphate/Sod Biphosphate (Adult) Enema 133 ML Bottle RECTAL PRN (10:23)
--- NOTE | 2018-11-30 10:29 | P.PNCV ---
- Note CVT: Post Op Day #: 1 Subjective/Hospital Course: HISTORY OF PRESENT ILLNESS: This is a 58-year-old man with known coronary disease. He has had apparently 7 stents placed at [facility] in [place], [place]. He has lived down here for about 8 years, has not followed up with a card mounter. However, he was seen at [facility] in 2011 and had a negative nuclear stress test. He has multiple risk factors including age, coronary artery disease, hyperlipidemia, tobacco abuse, strong premature family history. The patient presented with chest pain. Also, feeling like the burning sensation was in his stomach, going up to his throat, became severe on Monday. He lives in the [facility] and was transferred from the [facility]. Troponin level was 1.42. He underwent cardiac catheterization by Dr. Patrick, which showed an EF of 60%, left main disease 30% , proximal LAD 90%, mid distal LAD 80%. The diagonal was 80% ostial, 70% circumflex. There was a 90% small right posterior artery. We were consulted to evaluate for coronary artery bypass grafting to the LAD, the diagonal, and the obtuse marginal. PAST MEDICAL HISTORY: Coronary artery disease, hypertension, hyperlipidemia, PTSD from deaths of colleagues while in the [employer], chronic tobacco abuse, chronic back pain. for surgery on 11/28 no chest pain , for surgery in am 11/30/18 No complaints. Doing well. Objective: Vital Signs - 24 hr 11/29/18 12:20 11/29/18 12:25 11/29/18 12:30 Temperature 96.9 F L 96.9 F L Pulse Rate 63 Respiratory Rate 12 12 Blood Pressure 122/80 Pulse Oximetry 95 94 L 11/29/18 12:50 11/29/18 15:00 11/29/18 16:13 Temperature 95.8 F L Pulse Rate 63 112 H Respiratory Rate 15 20 Blood Pressure 120/82 Pulse Oximetry 96 99 11/29/18 17:46 11/29/18 19:00 11/29/18 20:00 Temperature 97.7 F 98.0 F Pulse Rate 80 80 Respiratory Rate 20 Blood Pressure 151/87 H Pulse Oximetry 96 11/29/18 20:55 11/29/18 21:14 11/29/18 23:00 Temperature Pulse Rate 118 H Respiratory Rate 20 Blood Pressure Pulse Oximetry 97 94 L 11/30/18 00:00 11/30/18 00:30 11/30/18 03:00 Temperature 98.3 F 98 F Pulse Rate 99 H 102 H 102 H Respiratory Rate 20 20 Blood Pressure 135/86 123/89 Pulse Oximetry 93 L 94 L 11/30/18 03:42 11/30/18 07:00 11/30/18 09:34 Temperature 97.0 F L Pulse Rate 98 H 104 H 101 H Respiratory Rate 16 18 20 Blood Pressure 137/98 H Pulse Oximetry 94 L 93 L Labs: Laboratory Results - last 12 hr 11/29/18 11/29/18 11/30/18 22:14 23:17 00:26 WBC RBC Hgb Hct MCV MCH MCHC RDW Plt Count MPV Sodium Potassium Chloride Carbon Dioxide Anion Gap BUN Creatinine Estimated GFR POC Glucose 161 H 116 H 122 H Random Glucose Calcium Magnesium 11/30/18 11/30/18 11/30/18 03:25 04:10 04:10 WBC 24.3 H RBC 4.88 Hgb 15.7 Hct 45.6 MCV 93.5 MCH 32.3 MCHC 34.5 RDW 13.8 Plt Count 235 MPV 8.0 Sodium 140 Potassium 4.2 Chloride 104 Carbon Dioxide 27.1 Anion Gap 9 BUN 18 Creatinine 0.92 Estimated GFR 84 L POC Glucose 134 H Random Glucose 129 H Calcium 8.9 Magnesium 2.2 11/30/18 11/30/18 11/30/18 04:18 05:17 07:32 WBC RBC Hgb Hct MCV MCH MCHC RDW Plt Count MPV Sodium Potassium Chloride Carbon Dioxide Anion Gap BUN Creatinine Estimated GFR POC Glucose 128 H 102 128 H Random Glucose Calcium Magnesium Result Diagrams: 11/30/18 04:10 11/30/18 04:10 Imaging: Carotid Doppler Study 11/26/18 14:12 CONCLUSION: Mild plaquing in the right carotid system with less than 50% diameter stenosis by velocity criteria. Lower Extremity Ultrasound 11/26/18 14:12 CONCLUSION: 1. Venous mapping as above. Venous Doppler Study 11/26/18 14:12 CONCLUSION: 1. The study is negative for bilateral lower extremity deep venous thrombosis. Chest X-Ray 11/30/18 05:00 CONCLUSION: Interval removal of endotracheal tube. Persistent mild pleural-parenchymal opacity at the left lung base. Cardiovascular: RRR Pulmonary: CTA GI/: NABS Incision: dry and intact CT: 130ml/12hrs - Plan (3) 2-vessel coronary artery disease Plan: on ASA, statin for surgery in am Transfer to stepdown Remove hodges Advance diet Beta heather Xanax for anxiety Encourage ambulation, up to chair Will add amlodipine for BP
[2018-11-30] MEDS: amLODIPine 10 MG Tablet PO SCH (11:30)
[2018-11-30] MEDS: Insulin NovoLOG Aspart Correctional Sugar Inj SQ SCH ×3 (14:04→22:03)
--- NOTE | 2018-11-30 15:49 | ECG ---
Date Performed: 11/30/2018 Time Performed: 03:54:56 PTAGE: 58 years EKG: Sinus tachycardia Inferior infarct - age undetermined Nonspecific lateral ST elevation Abno rmal ECG Compared to PREVIOUS TRACING , the sinus tachycardia is new. The ST elevation laterally, is also new, but nonspecific. It may be rate-related, but clinical correlation to assess the significance is ricardo mmended. PREVIOUS TRACIN11/26/2018 00.38 DOCTOR: Donna Smith Interpretating Date/Time 11/30/2018 15:48:04
[2018-11-30] MEDS: Docusate Sodium 100 MG Capsule PO SCH (20:47)
[2018-12-01] MEDS: Insulin NovoLOG Aspart Correctional Sugar Inj SQ SCH ×5 (01:14→23:48)
[2018-12-01] MEDS: ceFAZolin Inj 1 GM in Sodium Chlor 0.9% Inj 100 ML IV.SIG SCH (01:19)
[2018-12-01] MEDS: Amiodarone 200 MG Tablet PO SCH ×3 (05:05→21:07)
[2018-12-01 06:10] LABS: Baso # (Auto) 0.1 th/mm3 (0.0-0.2); Baso % (Auto) 0.6 % (0.0-2.0); Eos # (Auto) 0.1 th/mm3 (0.0-0.4); Eos % (Auto) 0.4 % (0.0-4.0); Hematocrit 42.6 % (39.0-51.0); Hemoglobin 14.4 gm/dL (13.0-17.0); Lymph # (Auto) 2.7 th/mm3 (1.0-4.8); Lymph % (Auto) 14.5 % (9.0-44.0); Mean Corpuscular HGB Conc 33.9 % (32.0-36.0); Mean Corpuscular Hemoglobin 31.6 pg (27.0-34.0); Mean Corpuscular Volume 93.2 fL (80.0-100.0); Mean Platelet Volume 7.8 fL (7.0-11.0); Mono # (Auto) 1.7 th/mm3 (0.0-0.9); Mono % (Auto) 9.1 % (0.0-8.0); Neut # (Auto) 13.8 th/mm3 (1.8-7.7); Neut % (Auto) 75.4 % (16.0-70.0); Platelet Count 205 th/mm3 (150-450); Red Blood Count 4.57 mil/mm3 (4.50-5.90); White Blood Count 18.3 th/mm3 (4.0-11.0)
[2018-12-01 07:13] LABS: Calcium 8.7 mg/dL (8.5-10.1); Carbon Dioxide 28.9 meq/L (21.0-32.0); Magnesium 2.2 mg/dL (1.5-2.5); Potassium 4.6 meq/L (3.5-5.1)
[2018-12-01] MEDS: Docusate Sodium 100 MG Capsule PO SCH ×2 (10:05→21:07)
[2018-12-01] MEDS: Polyethylene Glycol 3350 17 GM Packet PO SCH (10:05)
[2018-12-01] MEDS: Metoprolol Tartrate 25 MG Tablet PO SCH (10:05)
[2018-12-01] MEDS: Multivitamin/Minerals Therapeutic Tablet PO SCH (10:05)
--- NOTE | 2018-12-01 13:00 | P.PNCV ---
- Note CVT: Post Op Day #: 2 Subjective/Hospital Course: HISTORY OF PRESENT ILLNESS: This is a 58-year-old man with known coronary disease. He has had apparently 7 stents placed at [facility] in [place], [place]. He has lived down here for about 8 years, has not followed up with a drawer upfitter. However, he was seen at [facility] in 2011 and had a negative nuclear stress test. He has multiple risk factors including age, coronary artery disease, hyperlipidemia, tobacco abuse, strong premature family history. The patient presented with chest pain. Also, feeling like the burning sensation was in his stomach, going up to his throat, became severe on Monday. He lives in the [facility] and was transferred from the [email or web address] Troponin level was 1.42. He underwent cardiac catheterization by Dr. Patrick, which showed an EF of 60%, left main disease 30% , proximal LAD 90%, mid distal LAD 80%. The diagonal was 80% ostial, 70% circumflex. There was a 90% small right posterior artery. We were consulted to evaluate for coronary artery bypass grafting to the LAD, the diagonal, and the obtuse marginal. PAST MEDICAL HISTORY: Coronary artery disease, hypertension, hyperlipidemia, PTSD from deaths of colleagues while in the [employer], chronic tobacco abuse, chronic back pain. for surgery on 11/28 no chest pain , for surgery in am 11/30/18 No complaints. Doing well. 12/01/18 No complaints, doing well Objective: Vital Signs - 24 hr 11/30/18 13:39 11/30/18 15:00 11/30/18 19:00 Temperature 98.4 F 98.6 F Pulse Rate 92 H 88 96 H Respiratory Rate 18 18 18 Blood Pressure 136/86 145/85 H Pulse Oximetry 96 96 11/30/18 20:00 11/30/18 20:34 11/30/18 23:00 Temperature 97.7 F Pulse Rate 92 H 98 H 92 H Respiratory Rate 17 20 Blood Pressure 147/88 H Pulse Oximetry 94 L 98 12/01/18 03:00 12/01/18 07:00 12/01/18 08:00 Temperature 98.2 F 98.6 F Pulse Rate 9 L 94 H 94 H Respiratory Rate 18 16 Blood Pressure 134/87 135/88 Pulse Oximetry 98 97 12/01/18 08:37 12/01/18 09:00 12/01/18 10:00 Temperature Pulse Rate 92 H 114 H 96 H Respiratory Rate 16 Blood Pressure Pulse Oximetry 96 12/01/18 11:00 12/01/18 12:00 Temperature 98.1 F Pulse Rate 92 H 81 Respiratory Rate 16 Blood Pressure 132/86 Pulse Oximetry 97 Labs: Laboratory Results - last 12 hr 11/28/18 12/01/18 12/01/18 01:50 01:13 05:10 WBC RBC Hgb Hct MCV MCH MCHC RDW Plt Count MPV Neut % (Auto) Lymph % (Auto) Dale % (Auto) Eos % (Auto) Baso % (Auto) Neut # (Auto) Lymph # (Auto) Dale # (Auto) Eos # (Auto) Baso # (Auto) WBC Differential Differential Comment Sodium Potassium Chloride Carbon Dioxide Anion Gap BUN Creatinine Estimated GFR POC Glucose 113 H 135 H Random Glucose Calcium Magnesium MTS Gel Crossmatch See Detail 12/01/18 12/01/18 12/01/18 05:55 05:55 07:44 WBC 18.3 H RBC 4.57 Hgb 14.4 Hct 42.6 MCV 93.2 MCH 31.6 MCHC 33.9 RDW 14.0 Plt Count 205 MPV 7.8 Neut % (Auto) 75.4 H Lymph % (Auto) 14.5 Dale % (Auto) 9.1 H Eos % (Auto) 0.4 Baso % (Auto) 0.6 Neut # (Auto) 13.8 H Lymph # (Auto) 2.7 Dale # (Auto) 1.7 H Eos # (Auto) 0.1 Baso # (Auto) 0.1 WBC Differential . Differential Comment Auto diff final Sodium 138 Potassium 4.6 Chloride 103 Carbon Dioxide 28.9 Anion Gap 6 BUN 22 H Creatinine 0.91 Estimated GFR 85 L POC Glucose 105 Random Glucose 119 H Calcium 8.7 Magnesium 2.2 MTS Gel Crossmatch 12/01/18 11:39 WBC RBC Hgb Hct MCV MCH MCHC RDW Plt Count MPV Neut % (Auto) Lymph % (Auto) Dale % (Auto) Eos % (Auto) Baso % (Auto) Neut # (Auto) Lymph # (Auto) Dale # (Auto) Eos # (Auto) Baso # (Auto) WBC Differential Differential Comment Sodium Potassium Chloride Carbon Dioxide Anion Gap BUN Creatinine Estimated GFR POC Glucose 113 H Random Glucose Calcium Magnesium MTS Gel Crossmatch Result Diagrams: 12/01/18 05:55 12/01/18 05:55 Imaging: Carotid Doppler Study 11/26/18 14:12 CONCLUSION: Mild plaquing in the right carotid system with less than 50% diameter stenosis by velocity criteria. Lower Extremity Ultrasound 11/26/18 14:12 CONCLUSION: 1. Venous mapping as above. Venous Doppler Study 11/26/18 14:12 CONCLUSION: 1. The study is negative for bilateral lower extremity deep venous thrombosis. Chest X-Ray 11/30/18 05:00 CONCLUSION: Interval removal of endotracheal tube. Persistent mild pleural-parenchymal opacity at the left lung base. Cardiovascular: RRR Pulmonary: CTA GI/: NABS Incision: dry and intact CT: 30ml/12hrs - Plan (3) 2-vessel coronary artery disease Plan: on ASA, statin for surgery in am Remove chest tubes Encourage ambulation Increase BB dose Possible DC tomorrow Stim BM
[2018-12-01] MEDS: amLODIPine 10 MG Tablet PO SCH (14:02)
[2018-12-01] MEDS: Metoprolol Tartrate 50 MG Tablet PO SCH (21:07)
[2018-12-02] MEDS: Amiodarone 200 MG Tablet PO SCH ×2 (05:15→13:18)
[2018-12-02] MEDS: Polyethylene Glycol 3350 17 GM Packet PO SCH (08:29)
[2018-12-02] MEDS: Docusate Sodium 100 MG Capsule PO SCH (08:31)
[2018-12-02] MEDS: Multivitamin/Minerals Therapeutic Tablet PO SCH (08:31)
[2018-12-02] MEDS: Insulin NovoLOG Aspart Correctional Sugar Inj SQ SCH ×2 (08:31→11:42)
[2018-12-02] MEDS: amLODIPine 10 MG Tablet PO SCH (08:31)
[2018-12-02] MEDS: Metoprolol Tartrate 50 MG Tablet PO SCH (08:31)
--- NOTE | 2018-12-02 12:46 | P.DS ---
Date of admission: 11/26/18 01:18 Primary care physician: UNKNOWN Attending physician on discharge: Gregoria Chavarria Anticipated date of discharge: 12/02/18 Brief History from admission: HISTORY OF PRESENT ILLNESS: This is a 58-year-old man with known coronary disease. He has had apparently 7 stents placed at [facility] in [place], [place]. 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 However, he was seen at [facility] in 2011 and had a negative nuclear stress test. He has multiple risk factors including age, coronary artery disease, hyperlipidemia, tobacco abuse, strong premature family history. The patient presented with chest pain. Also, feeling like the burning sensation was in his stomach, going up to his throat, became severe on Monday. He lives in the [facility] and was transferred from the [facility]. Troponin level was 1.42. He underwent cardiac catheterization by Dr. Patrick, which showed an EF of 60%, left main disease 30% , proximal LAD 90%, mid distal LAD 80%. The diagonal was 80% ostial, 70% circumflex. There was a 90% small right posterior artery. We were consulted to evaluate for coronary artery bypass grafting to the LAD, the diagonal, and the obtuse marginal. PAST MEDICAL HISTORY: Coronary artery disease, hypertension, hyperlipidemia, PTSD from deaths of colleagues while in the [employer], chronic tobacco abuse, chronic back pain. for surgery on 11/28 no chest pain , for surgery in am 11/30/18 No complaints. Doing well. Patient update on day of discharge: Doing well. Requesting discharge. DS: Diagnosis - Discharge Diagnosis (1) S/P CABG (coronary artery bypass graft) Status: Acute Diagnosis: Principal (2) Non-STEMI (non-ST elevated myocardial infarction) Status: Acute Diagnosis: Principal (3) 2-vessel coronary artery disease Status: Acute Diagnosis: Principal (4) Tobacco abuse Status: Chronic Diagnosis: Secondary (5) HTN (hypertension) Status: Acute Diagnosis: Secondary (6) COPD (chronic obstructive pulmonary disease) Status: Acute Diagnosis: Secondary (7) Hyperlipidemia Status: Acute Diagnosis: Secondary DS: Medications - Discharge Medications Prescriptions: oxycodone-acetaminophen 1 tab PO Q3H PRN #30 tab PRN Reason: Pain Scale 1 To 5 DS: Summary Hospital Course: 58y/o male smoker with multiple risk factors for CAD including strong family history, tobacco abuse, HTN, hyperlipidemia presents with chest pain. He ruled- in for NSTEMI and underwent LHC. He was found to have severe 2 vessel CAD. He underwent CABG as follows: Date of procedure: 11/29/18 Procedure: CABG x 3 SIMS to LAd - good SVG to OM - good SVG to D1 - good EVH JAZMINE 11/28 no chest pain , for surgery in am 11/30/18 No complaints. Doing well. - Time Spent with Patient Total time spent providing and/or coordinating discharge services: Greater than 30 minutes - Quality: AMI Clinical Trial Participant: No - Quality: VTE Deep Vein Thrombosis/Pulmonary Embolism Present on Admission: No Exam Vital signs: Vital Signs 12/01/18 13:00 12/01/18 14:00 12/01/18 14:49 Temperature Pulse Rate 74 81 71 Respiratory Rate 18 Blood Pressure Pulse Oximetry 12/01/18 15:00 12/01/18 16:00 12/01/18 17:00 Temperature 98.3 F Pulse Rate 80 86 89 Respiratory Rate 16 Blood Pressure 125/78 Pulse Oximetry 93 L 12/01/18 18:00 12/01/18 19:00 12/01/18 20:00 Temperature 97.5 F L Pulse Rate 94 H 99 H 108 H Respiratory Rate 20 Blood Pressure 128/83 Pulse Oximetry 93 L 12/01/18 20:46 12/01/18 21:00 12/01/18 22:00 Temperature Pulse Rate 96 H 96 H 74 Respiratory Rate 18 Blood Pressure Pulse Oximetry 93 L 12/01/18 23:00 12/02/18 00:00 12/02/18 01:00 Temperature 98.4 F Pulse Rate 75 74 74 Respiratory Rate 18 Blood Pressure 123/82 Pulse Oximetry 94 L 12/02/18 02:00 12/02/18 03:00 12/02/18 04:00 Temperature 97.7 F Pulse Rate 74 81 86 Respiratory Rate 18 Blood Pressure 112/75 Pulse Oximetry 93 L 12/02/18 05:00 12/02/18 06:00 12/02/18 07:00 Temperature 98.1 F Pulse Rate 81 77 83 Respiratory Rate 16 Blood Pressure 126/83 Pulse Oximetry 95 12/02/18 08:00 12/02/18 09:00 12/02/18 09:47 Temperature Pulse Rate 78 83 76 Respiratory Rate 16 Blood Pressure Pulse Oximetry 12/02/18 09:50 12/02/18 10:00 12/02/18 11:00 Temperature 98 F Pulse Rate 77 82 Respiratory Rate 15 Blood Pressure 123/86 Pulse Oximetry 97 96 12/02/18 12:00 Temperature Pulse Rate 70 Respiratory Rate Blood Pressure Pulse Oximetry Intake & Output 12/01/18 12/02/18 12/02/18 18:59 06:59 18:59 Intake Total 1000 / 1000 240 / 240 Output Total 800 / 800 750 / 750 Balance 200 / 200 -510 / -510 Weight 77.9 kg Intake: Oral 1000 / 1000 240 / 240 Output: Urine 800 / 800 750 / 750 Other: Date of Last Bowel Movement 11/27/18 12/02/18 12/01/18 # Bowel Movements 0 - Constitutional no acute distress - Routine HEENT Exam Head: Present: normocephalic, atraumatic Eye: Present: EOMI, PERRL, normal accommodation ENT: Present: mucous membranes moist - Routine Neck Exam Present: supple - Routine Respiratory Exam Present: CTA bilaterally - Routine Cardiovascular Exam Present: RRR, S1, S2. Absent: murmur - Routine Abdominal Exam Present: soft, normoactive bowel sounds. Absent: tenderness - Routine Extremities Exam Present: pulses intact - Routine Skin Exam Present: intact - Routine Neurological Exam Present: alert, oriented X3, CN II-XII intact Results Procedures completed during hospitalization: cardiac cath. CABG x 3 Labs on day of discharge: Labs from last 24 hours 12/02/18 12/02/18 12/01/18 11:33 07:36 20:56 POC Glucose 99 136 H 155 H 12/01/18 16:54 POC Glucose 111 H - Impressions ITS Impressions Carotid Doppler Study 11/26/18 14:12 CONCLUSION: Mild plaquing in the right carotid system with less than 50% diameter stenosis by velocity criteria. Lower Extremity Ultrasound 11/26/18 14:12 CONCLUSION: 1. Venous mapping as above. Venous Doppler Study 11/26/18 14:12 CONCLUSION: 1. The study is negative for bilateral lower extremity deep venous thrombosis. Chest X-Ray 11/30/18 05:00 CONCLUSION: Interval removal of endotracheal tube. Persistent mild pleural-parenchymal opacity at the left lung base. Discharge Plan - Discharge Disposition Patient Disposition: 06 Disch W/Home Health Service - Discharge Condition Condition: Good - Discharge Order Discharge Orders: Discharge Order (Routine); Ordered 12/02/18 Ordered By: Gregoria Chavarria - Discharge Details Anticipated Discharge Date: 12/02/18 - Physicians Team Primary Care Provider: UNKNOWN, Attending Provider: Gregoria Chavarria Other Providers: Dakota Hoang DO ; Paige May MD - Rxs /Orders / Referrals /Forms Prescriptions: New amiodarone 200 mg Tablet 200 mg PO BID 14 Days Qty: 28 RF: 0 aspirin 81 mg Tablet,Chewable 81 mg PO DAILY Qty: 100 RF: 6 atorvastatin 40 mg Tablet 40 mg PO DAILY 30 Days Qty: 30 RF: 3 docusate sodium [DOK] 100 mg Capsule 100 mg PO BID RF: 0 metoprolol tartrate 50 mg Tablet 50 mg PO BID 30 Days Qty: 60 RF: 2 ynwayath-qdlg-GG-calcium-mins [Thera M Plus (ferrous fumarat)] 9 mg iron-400 mcg Tablet 1 tab PO DAILY RF: 0 oxycodone-acetaminophen 5-325 mg Tablet 1 tab PO Q3H PRN (Reason: Pain Scale 1 To 5) Qty: 30 RF: 0 pantoprazole 40 mg Tablet,Delayed Release (Dr/Ec) 40 mg PO DAILY 14 Days Qty: 14 RF: 0 Continue alprazolam [Xanax] 1 mg Tablet 1 mg PO PRN PRN (Reason: Anxiety) cyclobenzaprine 30 mg Capsule,Extended Release 24hr 10 mg PO PRN PRN (Reason: Muscle Spasm) lisinopril 10 mg Tablet 10 mg PO HS Ambulatory Orders / Order Sets / DME: XR chest 2V PA&LAT (Routine) Timeframe: 2 Weeks Location: Determined by Patient Ordered By: Korina Carter Basic Metabolic Panel (Routine) Timeframe: 2 Weeks Location: Determined by Patient Ordered By: Korina Carter Complete Blood Count NO Diff (Routine) Timeframe: 2 Weeks Location: Determined by Patient Ordered By: Korina Carter Referrals: Carmen Henriquez [Non-Staff] - See Instructions (Please call to schedule to patient appointment. Be sure to be seen within 2 weeks of discharge.) Korina Carter [ADVANCE RN PRACTITIONER] - See Instructions ( Your appointment has been scheduled for [12/20/18] at [11:15 AM] If you cannot make this appointment, please call the office to reschedule ) Jaspal Patrick MD [Physician] - See Instructions ( Your appointment has been scheduled for [01/03/19] at [1:45 PM] If you cannot make this appointment, please call the office to reschedule ) - Discharge Instructions Patient Printed Instructions: Heart Catheterization (DC), CABG (Coronary Artery Bypass Graft) (DC) Additional Instructions: PREVENA Single Use Negative Wound Therapy System Caregiver Instruction Sheet 1. A Prevena dressing system was applied to the chest incision during surgery , to promote wound healing. It works via a suction device (negative pressure wound therapy) to remove low to moderate levels of exudate (drainage) and infectious materials. We recommend that the device stay in place for up to seven days, from day of surgery. 2. Day of Surgery____11/29/18 Day of Removal ____12/06/18 3. The dressing should only be removed by a health personal care worker. Please arrange removal of device to coincide with Home Health visit and or with Nursing staff at Rehab 4. If skin reddening or irritation of skin occurs, or excessive drainage, please notify the Cardiovascular Surgeons office at [phone]. 5. Light showering is permissible; however the pump should be disconnected and placed in safe location, where it will not get wet. The dressing should not be exposed to direct spray or submerged in water. No bath tub / shower only. Ensure the end of the tubing attached to the dressing is facing down so that water does not enter the top of the tube. 6. To remove Prevena dressing: press purple button to turn off device / remove the suction. Then disconnect the tubing from the pump. The fixation strips should be stretched away from the skin and the dressing lifted at one corner and peeled back until it has been fully removed. 7. After removal, it is ok to shower daily using liquid dial soap and clean wash cloth, rinse and pat dry, and leave incision open to air dry. For any concerns regarding Prevena dressing, and or wounds, please contact Lee Ann Ferreira, patient navigator at [phone] or notify the Cardiovascular Surgeons office at [phone]. Incentive spirometry Q1 hr x 10, while awake, also use acapella device hourly whole awake Sternal Breast Bone Precautions: NO pushing or pulling, ( pt must use sternal pillow to support chest with all activities and with coughing ( takes up to 3 months breast bone to heal ) Daily incision care: ok to shower daily, no tub bath. Wash all incisions with liquid dial soap, clean wash cloth to each site, rinse and pat dry. Observe for any signs of infection, such as drainage which is dark yellow, moore, green or foul smelling. Immediately report to the surgeon any drainage from the chest incision, or legs, and for any abnormal drainage from the chest tube sites. Notify surgeon if any temp >101.5 degrees F. When specialty dressing removed/ or if you do not have one, continue to shower daily as above, then rinse and pat incision dry and paint with betadine daily x 5 days. Allow steri strips to fall off if you have any. Avoid lotions, creams, salves, oils, etc. for the first month Please see attached forms for additional instructions regarding post Open Heart specialty wound vacuum dressings. JAMES or Prevena , Dressing to be removed by Nursing staff on __12/06/[address] Chavarria patients , please obtain CBC, BMP, PA & Lat CXR in 2 weeks, results to Dr. Chavarria ( prescription will be given) ( ) (Tele: [phone]) , F/U appointment: as per CO instructions: PCP in 2 weeks, CV surgeon 2 weeks, Exterior Interior Specialist 3-4 weeks For any questions regarding incisions/ dressing / meds / post op care or above Symptoms, Monday 8am-5pm Heart & Vascular Surgery Office ( Dr. May & Dr. Chavarria), After Hours / Nights (5pm -8am) Weekends and Holidays Please call [facility] Cardiac [facility] Care Unit (CIC) Charge Nurse
== END 2018-12-02 14:21 | disposition home health service (06) | DRG 234 ==
LOC: PHEDDLT 15:27 → HCPC 15:27 → HCVI 11-29 12:28 → HCPC 11-30 19:09
PROVIDERS: ADMIT Thoracic Surgery (Cardiothoracic Vascular Surgery); ATTEND Thoracic Surgery (Cardiothoracic Vascular Surgery)
DX: I25.10 Atherosclerotic heart disease of native coronary artery without angina pectoris; K21.9 Gastro-esophageal reflux disease without esophagitis; M54.9 Dorsalgia, unspecified; F17.210 Nicotine dependence, cigarettes, uncomplicated; J44.9 Chronic obstructive pulmonary disease, unspecified; E78.5 Hyperlipidemia, unspecified; Z91.19 Patient's noncompliance with other medical treatment and regimen; I10 Essential (primary) hypertension; Z95.5 Presence of coronary angioplasty implant and graft; G89.29 Other chronic pain; Z82.49 Family history of ischemic heart disease and other diseases of the circulatory system; F43.10 Post-traumatic stress disorder, unspecified; I21.4 Non-ST elevation (NSTEMI) myocardial infarction
CPT/HCPCS: 36430; 71010; 71045; 80048; 80053; 80061; 81001; 82550; 82948; 82962; 83036; 83520; 83690; 83735; 83880; 84484; 85025; 85027; 85379; 85610; 85730; 86850; 86900; 86901; 86923; 87641; 90774; 90775; 90784; 93005; 93312; 93318; 93458; 93880; 93965; 93970; 93998; 94002; 94010; 94150; 94640; 94650; 94651; 94656; 94664; 94665; 94667; 96374; 96375; 97110; 97116; 97162; 97530; 99152; 99153; 99285; C1769; C1893; C8952; C9113; C9248; G0378; J0131; J0360; J0690; J1644; J1815; J1817; J1885; J1940; J2150; J2250; J2270; J2370; J2405; J2440; J2720; J2930; J3010; J3370; J3475; J3480; J7030; P9016; P9047; Q9967